=== PATIENT | male | born 1945 | race Caucasian/White ===

== ENCOUNTER 2019-02-16 09:20 | Inpatient (IN) ==
[2019-02-16] MEDS ORDERED: SODIUM CHLORIDE 0.9% 500 ML IV STA (09:40)
[2019-02-16] MEDS ORDERED: ALBUTEROL/IPRATROPIUM 3 ML NEB RESP TX STA (09:40)
[2019-02-16] MEDS ORDERED: LEVOFLOXACIN INJ 500 MG in PREMIX 1 EACH IV STA (09:48)
[2019-02-16 10:04] LABS: Basophils # 0.1 10*3/uL (0.0-0.2); Basophils % 0.4 % (0.0-0.8); Hematocrit 46.1 VOL% (42.0-52.0); Hemoglobin 15.3 GM/DL (14.0-18.0); Immature Granulocytes % 2.8 %; Immature Granulocytes Absolute 0.59 #; Lymphocytes # 0.3 10*3/uL (1.4-4.0); Lymphocytes % 1.2 % (21.2-54.2); Mean Corpuscular HGB Conc 33.2 GM/DL (32-36); Neutrophils % 90.6 % (38.7-73.9); Platelet Count 226 T/CUMM (130-400); Red Blood Count 4.61 MC/CUMM (3.8-5.5); Red Cell Distribution Width 12.6 % (9.3-17.3); White Blood Count 21.4 T/CUMM (4-12)
[2019-02-16] MEDS ORDERED: methylPREDNISolone SOD SUC 125 MG/2 ML VIAL IV STA (10:09)
[2019-02-16 10:13] LABS: INR 1.1; Partial Thromboplastin Time 25.9 SECS (0-40)
[2019-02-16 10:22] LABS: Band Neutrophils 4 % (0-10); Lymphocytes 2 % (20-55); Platelet Estimate Adequate; Segmented Neutrophils 88 % (50-85); Total Cells Counted 100
[2019-02-16 10:23] LABS: Hypochromasia 1+
[2019-02-16 10:41] LABS: Calcium 8.6 MG/DL (8.5-10.1); Osmolality,Calculated 271.1 MOS/KG (273-304); Total Protein 7.3 G/DL (6.4-8.3)
[2019-02-16 10:44] LABS: Apearance,Urine CLEAR (Clear); Blood, Urine Negative (Negative); Glucose,Urine (UA) Negative (Negative); Ketones,Urine 5 mg/dL (Negative); Mucus,Urine Occasional /LPF (Occasional); Nitrite,Urine Negative (Negative); Protein,Urine Negative; RBC,Urine 1 /HPF (0-4); Squamous Epithelial Cell,Urine Occasional /HPF (0-10); Urine Color Amber (Yellow); Urine Specific Gravity 1.053 (1.001-1.035); WBC,Urine 1 /HPF (0-6)
[2019-02-16 10:45] LABS: Bilirubin,Urine Small mg/dL (Negative)
[2019-02-16] MEDS ORDERED: ACETAMINOPHEN 325 MG TABLET PO PRN (11:51)
[2019-02-16] MEDS ORDERED: ONDANSETRON 4 MG/2 ML VIAL IV PRN (11:51)
[2019-02-16] MEDS: ALBUTEROL/IPRATROPIUM 3 ML NEB RESP TX SCH ×2 (13:26→19:57)
[2019-02-16] MEDS ORDERED: IPRATROPIUM 500 MCG/2.5 ML NEB RESP TX PRN (14:30)
[2019-02-16] MEDS: OFLOXACIN 0.3% OPH SOLN 5 ML BOTTLE RIGHT EYE SCH ×3 (16:58→21:17)
[2019-02-16] MEDS: KETOROLAC 0.5% OPH SOLN 5 ML BOTTLE RIGHT EYE SCH ×3 (16:58→21:17)
[2019-02-16] MEDS ORDERED: MELATONIN 3 MG TABLET PO PRN (20:45)
[2019-02-16] MEDS: METOPROLOL TARTRATE 25 MG TABLET PO SCH (21:16)
[2019-02-16] MEDS: FLUTICASONE 50 MCG NASAL SPRAY 16 GM BOTTLE BOTH NARES SCH (21:17)
[2019-02-16] MEDS: methylPREDNISolone SOD SUC 40 MG/1 ML VIAL IV SCH (21:18)
[2019-02-17] MEDS: ALBUTEROL/IPRATROPIUM 3 ML NEB RESP TX SCH ×4 (01:43→20:06)
[2019-02-17 05:00] LABS: Basophils % 0.1 % (0.0-0.8); Hematocrit 43.2 VOL% (42.0-52.0); Hemoglobin 14.7 GM/DL (14.0-18.0); Immature Granulocytes % 2.9 %; Immature Granulocytes Absolute 0.65 #; Lymphocytes # 0.4 10*3/uL (1.4-4.0); Lymphocytes % 1.7 % (21.2-54.2); Mean Corpuscular Volume 98.4 FL (87-102); Monocytes % 4.7 % (1.7-12.7); Neutrophils % 90.6 % (38.7-73.9); Platelet Count 244 T/CUMM (130-400); Red Blood Count 4.39 MC/CUMM (3.8-5.5); Red Cell Distribution Width 12.4 % (9.3-17.3); White Blood Count 22.7 T/CUMM (4-12)
[2019-02-17 05:29] LABS: Band Neutrophils 1 % (0-10); Hypochromasia 1+; Lymphocytes 3 % (20-55); Platelet Estimate Adequate; Segmented Neutrophils 92 % (50-85); Total Cells Counted 100
[2019-02-17 05:40] LABS: Calcium 9.4 MG/DL (8.5-10.1); Osmolality,Calculated 279.8 MOS/KG (273-304); Risk Ratio 2.13; Thyroid Stimulating Hormone 0.428 uIU/ml (0.358-3.74); VLDL CHOLESTEROL 14.6 MG/DL
[2019-02-17] MEDS: LEVOFLOXACIN INJ 750 MG in PREMIX 1 EACH IV SCH (09:18)
[2019-02-17] MEDS: ENOXAPARIN 40 MG/0.4 ML SYRINGE SUBCUT SCH (09:18)
[2019-02-17] MEDS: THEOPHYLLINE ER (24 HR) 200 MG CAPSULE PO SCH (09:19)
[2019-02-17] MEDS: METOPROLOL TARTRATE 25 MG TABLET PO SCH ×2 (09:19→22:17)
[2019-02-17] MEDS: methylPREDNISolone SOD SUC 40 MG/1 ML VIAL IV SCH ×2 (09:19→22:17)
[2019-02-17] MEDS: amLODIPine 10 MG TABLET PO SCH (09:20)
[2019-02-17] MEDS: PARoxetine 20 MG TABLET PO SCH (09:20)
[2019-02-17] MEDS: LOSARTAN 50 MG TABLET PO SCH (09:20)
[2019-02-17] MEDS: MONTELUKAST 10 MG TABLET PO SCH (09:20)
[2019-02-17] MEDS: PANTOPRAZOLE 40 MG TABLET PO SCH (09:20)
[2019-02-17] MEDS: OFLOXACIN 0.3% OPH SOLN 5 ML BOTTLE RIGHT EYE SCH ×4 (09:21→22:18)
[2019-02-17] MEDS: KETOROLAC 0.5% OPH SOLN 5 ML BOTTLE RIGHT EYE SCH ×4 (09:21→22:18)
[2019-02-17] MEDS: FLUTICASONE 50 MCG NASAL SPRAY 16 GM BOTTLE BOTH NARES SCH ×2 (09:40→22:18)
[2019-02-18] MEDS: ALBUTEROL/IPRATROPIUM 3 ML NEB RESP TX SCH ×3 (01:00→13:10)
[2019-02-18 05:11] LABS: Basophils % 0.2 % (0.0-0.8); Hematocrit 42.1 VOL% (42.0-52.0); Hemoglobin 14.3 GM/DL (14.0-18.0); Immature Granulocytes % 2.6 %; Immature Granulocytes Absolute 0.49 #; Lymphocytes # 0.3 10*3/uL (1.4-4.0); Lymphocytes % 1.5 % (21.2-54.2); Mean Corpuscular Volume 98.4 FL (87-102); Mean Platelet Volume 11.9 FL (9.6-12.0); Monocytes % 3.6 % (1.7-12.7); Neutrophils % 92.1 % (38.7-73.9); Platelet Count 280 T/CUMM (130-400); Red Blood Count 4.28 MC/CUMM (3.8-5.5); Red Cell Distribution Width 12.3 % (9.3-17.3); White Blood Count 18.6 T/CUMM (4-12)
[2019-02-18 05:30] LABS: Giant Platelets Few; Hypochromasia 1+; Platelet Estimate Adequate
[2019-02-18 05:44] LABS: Calcium 9.2 MG/DL (8.5-10.1)
[2019-02-18] MEDS: THEOPHYLLINE ER (24 HR) 200 MG CAPSULE PO SCH (09:52)
[2019-02-18] MEDS: LOSARTAN 50 MG TABLET PO SCH (09:52)
[2019-02-18] MEDS: KETOROLAC 0.5% OPH SOLN 5 ML BOTTLE RIGHT EYE SCH ×2 (09:52→13:18)
[2019-02-18] MEDS: OFLOXACIN 0.3% OPH SOLN 5 ML BOTTLE RIGHT EYE SCH ×2 (09:52→13:18)
[2019-02-18] MEDS: FLUTICASONE 50 MCG NASAL SPRAY 16 GM BOTTLE BOTH NARES SCH (09:53)
[2019-02-18] MEDS: PANTOPRAZOLE 40 MG TABLET PO SCH (09:53)
[2019-02-18] MEDS: MONTELUKAST 10 MG TABLET PO SCH (09:53)
[2019-02-18] MEDS: PARoxetine 20 MG TABLET PO SCH (09:53)
[2019-02-18] MEDS: METOPROLOL TARTRATE 25 MG TABLET PO SCH (09:53)
[2019-02-18] MEDS: amLODIPine 10 MG TABLET PO SCH (09:53)
[2019-02-18] MEDS: methylPREDNISolone SOD SUC 40 MG/1 ML VIAL IV SCH (09:57)
[2019-02-18] MEDS: ENOXAPARIN 40 MG/0.4 ML SYRINGE SUBCUT SCH (09:59)
[2019-02-18] MEDS: LEVOFLOXACIN INJ 750 MG in PREMIX 1 EACH IV SCH (10:05)
[2019-02-18 11:20] VITALS: BP 136/71
== END 2019-02-18 15:36 | disposition home or self-care (01) | DRG 194 ==
LOC: EDBD → EDUNIT# → N.ED 09:20 → N.EDINP 10:25 → N.2E 13:56
PROVIDERS: ADMIT Internal Medicine; ATTEND Internal Medicine

== ENCOUNTER 2019-06-01 10:44 | Observation (INO) ==
[2019-06-01] MEDS ORDERED: ALBUTEROL/IPRATROPIUM 3 ML NEB RESP TX STA (11:07)
[2019-06-01] MEDS ORDERED: methylPREDNISolone SOD SUC 125 MG/2 ML VIAL IV STA (11:07)
[2019-06-01 11:37] LABS: Basophils # 0.1 10*3/uL (0.0-0.2); Basophils % 0.4 % (0.0-0.8); Eosinophils # 0.1 10*3/uL (0.0-0.87); Eosinophils % 0.6 % (0.00-10.9); Hematocrit 45.2 VOL% (42.0-52.0); Hemoglobin 14.7 GM/DL (14.0-18.0); Immature Granulocytes % 0.8 %; Immature Granulocytes Absolute 0.11 #; Lymphocytes # 0.8 10*3/uL (1.4-4.0); Lymphocytes % 6.3 % (21.2-54.2); Mean Corpuscular HGB Conc 32.5 GM/DL (32-36); Mean Corpuscular Volume 98.3 FL (87-102); Monocytes % 5.2 % (1.7-12.7); Neutrophils % 86.7 % (38.7-73.9); Platelet Count 285 T/CUMM (130-400); White Blood Count 13.2 T/CUMM (4-12)
[2019-06-01] MEDS ORDERED: cefTRIAXone 1,000 MG in SODIUM CHLORIDE 0.9% 100 ML IV STA (11:54)
[2019-06-01 12:02] LABS: Albumin 3.1 G/DL (3.4-5.0); Bilirubin,Total 0.8 MG/DL (0.2-1.0); Calcium 8.5 MG/DL (8.5-10.1); Osmolality,Calculated 278.5 MOS/KG (273-304); Total Protein 7.4 G/DL (6.4-8.3)
[2019-06-01] MEDS ORDERED: ALBUTEROL 2.5 MG/3 ML NEB RESP TX PRN (13:16)
[2019-06-01 13:44] LABS: ABG Base Excess 2.8 MMOL/L (-2.5-2.5); ABG HCO3 26.8 MMOL/L (20-26); ABG Oxygen Saturation 93.5 % (95-100); ABG PCO2 40.9 MM HG (35-48); ABG PH 7.433 (7.35-7.45); ABG PO2 65.2 MM HG (80-95); ABG TCO2 23.1 MMOL/L (23-27); Allen Test Positive
[2019-06-01] MEDS ORDERED: NON-FORMULARY MEDICATION (Epinephrine [Epipen 2-Pak] 0.3 MG) IM PRN (13:48)
[2019-06-01] MEDS ORDERED: IPRATROPIUM 500 MCG/2.5 ML NEB RESP TX PRN (13:48)
[2019-06-01] MEDS ORDERED: FLUTICASONE/SALMETEROL 500-50 DISKUS 14 DOSE INH PRN (13:48)
[2019-06-01 17:04] LABS: Apearance,Urine CLEAR (Clear); Blood, Urine Negative (Negative); Glucose,Urine (UA) Negative (Negative); Hyaline Casts,Urine 1 /LPF (0-3); Ketones,Urine Negative (Negative); Mucus,Urine Few /LPF (Occasional); Nitrite,Urine Negative (Negative); Protein,Urine 30 MG/DL; RBC,Urine <1 /HPF (0-4); Squamous Epithelial Cell,Urine Occasional /HPF (0-10); Urine Color Amber (Yellow); Urine Specific Gravity 1.031 (1.001-1.035); WBC,Urine 1 /HPF (0-6)
[2019-06-01 17:07] LABS: Bilirubin,Urine Small mg/dL (Negative)
[2019-06-01] MEDS: AZITHROMYCIN INJ 500 MG in SODIUM CHLORIDE 0.9% 250 ML IV SCH (17:39)
[2019-06-01] MEDS: ALBUTEROL/IPRATROPIUM 3 ML NEB RESP TX SCH (19:38)
[2019-06-01] MEDS: guaiFENesin/DM ER 600-30 MG TABLET PO SCH (20:31)
[2019-06-01] MEDS: FLUTICASONE 50 MCG NASAL SPRAY 16 GM BOTTLE BOTH NARES SCH (20:31)
[2019-06-01] MEDS: METOPROLOL TARTRATE 25 MG TABLET PO SCH (20:31)
[2019-06-01] MEDS: NAPROXEN 500 MG TABLET PO SCH (20:31)
[2019-06-01] MEDS: guaiFENesin/CODEINE 5 ML LIQUID PO PRN (23:19)
[2019-06-02] MEDS: ALBUTEROL/IPRATROPIUM 3 ML NEB RESP TX SCH ×4 (00:01→20:06)
[2019-06-02 05:09] LABS: Basophils % 0.3 % (0.0-0.8); Hematocrit 44.3 VOL% (42.0-52.0); Hemoglobin 14.6 GM/DL (14.0-18.0); Immature Granulocytes Absolute 0.16 #; Lymphocytes # 0.5 10*3/uL (1.4-4.0); Lymphocytes % 3.5 % (21.2-54.2); Mean Corpuscular Volume 96.7 FL (87-102); Mean Platelet Volume 11.8 FL (9.6-12.0); Monocytes % 3.3 % (1.7-12.7); NRBC # 0.03 10*3/uL; Neutrophils % 91.9 % (38.7-73.9); Platelet Count 304 T/CUMM (130-400); Red Blood Count 4.58 MC/CUMM (3.8-5.5); Red Cell Distribution Width 12.5 % (9.3-17.3); White Blood Count 15.4 T/CUMM (4-12)
[2019-06-02 05:38] LABS: Albumin 2.8 G/DL (3.4-5.0); Bilirubin,Total 0.7 MG/DL (0.2-1.0); Calcium 8.8 MG/DL (8.5-10.1); Osmolality,Calculated 276.1 MOS/KG (273-304); Total Protein 7.4 G/DL (6.4-8.3)
[2019-06-02 05:47] LABS: Platelet Estimate Normal
[2019-06-02 05:48] LABS: Spherocytes Slight
[2019-06-02 07:03] LABS: Band Neutrophils 1 % (0-10); Lymphocytes 6 % (20-55); Segmented Neutrophils 90 % (50-85); Total Cells Counted 100
[2019-06-02] MEDS: METOPROLOL TARTRATE 25 MG TABLET PO SCH ×2 (09:06→20:36)
[2019-06-02] MEDS: MONTELUKAST 10 MG TABLET PO SCH (09:06)
[2019-06-02] MEDS: LOSARTAN 50 MG TABLET PO SCH (09:06)
[2019-06-02] MEDS: NAPROXEN 500 MG TABLET PO SCH ×2 (09:06→20:36)
[2019-06-02] MEDS: guaiFENesin/DM ER 600-30 MG TABLET PO SCH ×2 (09:06→20:36)
[2019-06-02] MEDS: FLUTICASONE 50 MCG NASAL SPRAY 16 GM BOTTLE BOTH NARES SCH ×2 (09:07→20:37)
[2019-06-02] MEDS: PARoxetine 20 MG TABLET PO SCH (09:07)
[2019-06-02] MEDS: predniSONE 20 MG TABLET PO SCH (09:07)
[2019-06-02] MEDS: THEOPHYLLINE ER (24 HR) 400 MG CAPSULE PO SCH (09:07)
[2019-06-02] MEDS: POLYVINYL ALCOHOL 1.4% OPH SOLN 15 ML BOTTLE BOTH EYES SCH (11:15)
[2019-06-02] MEDS: guaiFENesin/CODEINE 5 ML LIQUID PO PRN ×3 (11:44→20:36)
[2019-06-02] MEDS ORDERED: BENZONATATE 100 MG CAPSULE PO ONE (15:58)
[2019-06-02] MEDS: AZITHROMYCIN INJ 500 MG in SODIUM CHLORIDE 0.9% 250 ML IV SCH (16:47)
[2019-06-02] MEDS: BENZONATATE 100 MG CAPSULE PO SCH (20:36)
[2019-06-03] MEDS: ALBUTEROL/IPRATROPIUM 3 ML NEB RESP TX SCH ×2 (01:23→07:47)
[2019-06-03 07:36] VITALS: BP 140/71
[2019-06-03] MEDS: POLYVINYL ALCOHOL 1.4% OPH SOLN 15 ML BOTTLE BOTH EYES SCH (08:51)
[2019-06-03] MEDS: BENZONATATE 100 MG CAPSULE PO SCH (08:52)
[2019-06-03] MEDS: MONTELUKAST 10 MG TABLET PO SCH (08:53)
[2019-06-03] MEDS: THEOPHYLLINE ER (24 HR) 400 MG CAPSULE PO SCH (08:53)
[2019-06-03] MEDS: LOSARTAN 50 MG TABLET PO SCH (08:53)
[2019-06-03] MEDS: PARoxetine 20 MG TABLET PO SCH (08:54)
[2019-06-03] MEDS: guaiFENesin/DM ER 600-30 MG TABLET PO SCH (08:54)
[2019-06-03] MEDS: predniSONE 20 MG TABLET PO SCH (08:54)
[2019-06-03] MEDS: METOPROLOL TARTRATE 25 MG TABLET PO SCH (08:54)
[2019-06-03] MEDS: NAPROXEN 500 MG TABLET PO SCH (08:54)
[2019-06-03] MEDS: FLUTICASONE 50 MCG NASAL SPRAY 16 GM BOTTLE BOTH NARES SCH (08:54)
[2019-06-03] MEDS ORDERED: AZITHROMYCIN 250 MG TABLET PO SCH (09:00)
== END 2019-06-03 10:28 | disposition home or self-care (01) ==
LOC: N.ED 10:44 → N.EDINP 10:44 → N.2W 15:02
PROVIDERS: ADMIT Internal Medicine; ATTEND Internal Medicine

== ENCOUNTER 2020-03-28 15:47 | Observation (INO) ==
[2020-03-28 17:06] LABS: Basophils # 0.1 10*3/uL (0.0-0.2); Basophils % 0.7 % (0.0-0.8); Eosinophils % 0.1 % (0.00-10.9); Hematocrit 48.6 VOL% (42.0-52.0); Hemoglobin 16.2 GM/DL (14.0-18.0); Immature Granulocytes % 3.3 %; Lymphocytes # 0.7 10*3/uL (1.4-4.0); Lymphocytes % 4.6 % (21.2-54.2); Mean Corpuscular HGB Conc 33.3 GM/DL (32-36); Mean Corpuscular Volume 96.2 FL (87-102); Mean Platelet Volume 11.4 FL (9.6-12.0); Monocytes % 4.6 % (1.7-12.7); Neutrophils % 86.7 % (38.7-73.9); Platelet Count 256 T/CUMM (130-400); Red Blood Count 5.05 MC/CUMM (3.8-5.5); Red Cell Distribution Width 13.4 % (9.3-17.3); White Blood Count 15.4 T/CUMM (4-12)
[2020-03-28 17:21] LABS: Albumin 3.4 G/DL (3.4-5.0); Bilirubin,Total 1.1 MG/DL (0.2-1.0); Calcium 8.7 MG/DL (8.5-10.1); Osmolality,Calculated 286.7 MOS/KG (273-304); Total Protein 6.5 G/DL (6.4-8.3)
[2020-03-28] MEDS ORDERED: cefTRIAXone 1,000 MG in SODIUM CHLORIDE 0.9% 100 ML IV STA (17:39)
[2020-03-28] MEDS ORDERED: AZITHROMYCIN INJ 500 MG in SODIUM CHLORIDE 0.9% 250 ML IV STA (17:39)
[2020-03-28 17:40] LABS: Lymphocytes 5 % (20-55); Platelet Estimate Adequate; Segmented Neutrophils 90 % (50-85); Total Cells Counted 100
[2020-03-28] MEDS ORDERED: ACETAMINOPHEN 325 MG TABLET PO PRN (17:47)
[2020-03-28] MEDS ORDERED: ONDANSETRON 4 MG/2 ML VIAL IV PRN (17:47)
[2020-03-28] MEDS ORDERED: GLUCAGON 1 MG VIAL IM PRN (17:47)
[2020-03-28] MEDS ORDERED: DEXTROSE 50% 25 GM/50 ML VIAL IV PRN (17:47)
[2020-03-28] MEDS ORDERED: BISACODYL 5 MG TABLET PO PRN (17:47)
[2020-03-28] MEDS ORDERED: FUROSEMIDE 40 MG/4 ML VIAL IV ONE (18:19)
[2020-03-28] MEDS ORDERED: ALBUTEROL/IPRATROPIUM 3 ML NEB RESP TX PRN (18:36)
[2020-03-28 19:57] LABS: Troponin I < 0.015 NG/ML (0.00-0.045)
[2020-03-28] MEDS: INSULIN LISPRO 100 UNIT/ML SUBCUT SCH (21:11)
[2020-03-28 21:57] LABS: Troponin I < 0.015 NG/ML (0.00-0.045)
[2020-03-29 06:30] LABS: Basophils # 0.1 10*3/uL (0.0-0.2); Basophils % 0.5 % (0.0-0.8); Eosinophils % 0.1 % (0.00-10.9); Hemoglobin 15.5 GM/DL (14.0-18.0); Immature Granulocytes % 3.8 %; Lymphocytes # 1.7 10*3/uL (1.4-4.0); Mean Corpuscular HGB Conc 33.7 GM/DL (32-36); Mean Corpuscular Volume 96.2 FL (87-102); Mean Platelet Volume 11.5 FL (9.6-12.0); Monocytes % 6.6 % (1.7-12.7); Platelet Count 216 T/CUMM (130-400); Red Blood Count 4.78 MC/CUMM (3.8-5.5); Red Cell Distribution Width 13.2 % (9.3-17.3); White Blood Count 13.2 T/CUMM (4-12)
[2020-03-29 07:01] LABS: Bilirubin,Total 0.4 MG/DL (0.2-1.0); Calcium 8.6 MG/DL (8.5-10.1); Osmolality,Calculated 285.5 MOS/KG (273-304); Risk Ratio 3.37; Thyroid Stimulating Hormone 0.436 uIU/ml (0.358-3.74); Total Protein 6.4 G/DL (6.4-8.3)
[2020-03-29] MEDS ORDERED: FUROSEMIDE 40 MG/4 ML VIAL IV SCH (08:00)
[2020-03-29] MEDS: cefTRIAXone 1,000 MG in SYRINGE 1 EACH IV SCH (08:52)
[2020-03-29] MEDS: AZITHROMYCIN INJ 500 MG in SODIUM CHLORIDE 0.9% 250 ML IV SCH (08:52)
[2020-03-29] MEDS: INSULIN LISPRO 100 UNIT/ML SUBCUT SCH ×4 (08:58→21:40)
[2020-03-29] MEDS ORDERED: POTASSIUM CHLORIDE 20 MEQ TABLET PO PRN (09:17)
[2020-03-29 10:01] LABS: Theophylline 3.5 UG/ML (10-20)
[2020-03-29] MEDS: METOPROLOL TARTRATE 25 MG TABLET PO SCH (10:02)
[2020-03-29] MEDS: methylPREDNISolone 4 MG TABLET PO SCH (10:02)
[2020-03-30 05:45] LABS: Basophils # 0.1 10*3/uL (0.0-0.2); Basophils % 0.7 % (0.0-0.8); Eosinophils % 0.3 % (0.00-10.9); Hematocrit 48.7 VOL% (42.0-52.0); Immature Granulocytes % 3.9 %; Immature Granulocytes Absolute 0.38 #; Lymphocytes # 1.6 10*3/uL (1.4-4.0); Lymphocytes % 16.1 % (21.2-54.2); Mean Corpuscular HGB Conc 32.9 GM/DL (32-36); Mean Corpuscular Volume 98.6 FL (87-102); Mean Platelet Volume 10.9 FL (9.6-12.0); Monocytes % 9.7 % (1.7-12.7); Neutrophils % 69.3 % (38.7-73.9); Platelet Count 206 T/CUMM (130-400); Red Blood Count 4.94 MC/CUMM (3.8-5.5); Red Cell Distribution Width 13.2 % (9.3-17.3); White Blood Count 9.7 T/CUMM (4-12)
[2020-03-30 07:32] LABS: Bilirubin,Total 0.76 MG/DL (0.2-1.0); Calcium 9.1 MG/DL (8.5-10.1); Osmolality,Calculated 281.5 MOS/KG (273-304); Total Protein 6.5 G/DL (6.4-8.3)
[2020-03-30] MEDS: methylPREDNISolone 4 MG TABLET PO SCH (09:37)
[2020-03-30] MEDS: cefTRIAXone 1,000 MG in SYRINGE 1 EACH IV SCH (09:37)
[2020-03-30] MEDS: METOPROLOL TARTRATE 25 MG TABLET PO SCH (09:37)
[2020-03-30] MEDS: AZITHROMYCIN INJ 500 MG in SODIUM CHLORIDE 0.9% 250 ML IV SCH (09:48)
[2020-03-30] MEDS: INSULIN LISPRO 100 UNIT/ML SUBCUT SCH ×2 (10:59→14:58)
[2020-03-30 11:27] VITALS: BP 121/61
== END 2020-03-30 14:38 | disposition home or self-care (01) ==
LOC: N.EDINP 15:47 → N.ED 15:47 → SUATTDRO 17:47 → N.TELEN 18:23
PROVIDERS: ADMIT Internal Medicine; ATTEND Internal Medicine

== ENCOUNTER 2020-05-11 09:17 | Inpatient (IN) ==
[2020-05-11] MEDS ORDERED: cefTRIAXone 1,000 MG in SODIUM CHLORIDE 0.9% 100 ML IV STA (09:54)
[2020-05-11] MEDS ORDERED: SODIUM CHLORIDE 0.9% 1,000 ML IV STA (09:54)
[2020-05-11 10:29] LABS: Basophils % 0.3 % (0.0-0.8); Eosinophils % 0.1 % (0.00-10.9); Hematocrit 41.2 VOL% (42.0-52.0); Immature Granulocytes % 1.6 %; Immature Granulocytes Absolute 0.21 #; Lymphocytes # 0.6 10*3/uL (1.4-4.0); Lymphocytes % 4.2 % (21.2-54.2); Mean Corpuscular Volume 93.8 FL (87-102); Mean Platelet Volume 11.4 FL (9.6-12.0); Monocytes % 6.2 % (1.7-12.7); Neutrophils % 87.6 % (38.7-73.9); Platelet Count 266 T/CUMM (130-400); Red Blood Count 4.39 MC/CUMM (3.8-5.5); Red Cell Distribution Width 13.2 % (9.3-17.3); White Blood Count 13.5 T/CUMM (4-12)
[2020-05-11 10:49] LABS: Alanine Aminotransferase 23 U/L (16-61); Albumin 2.9 G/DL (3.4-5.0); Alkaline Phosphatase 106 U/L (45-117); Aspartate Amino Transferase 14 U/L (0-37); Blood Urea Nitrogen 22 MG/DL (7-18); Calcium 8.5 MG/DL (8.5-10.1); Estimated Glom Filtration Rate 62 ML/MIN; Glucose 169 MG/DL (74-106); INR 1.1; Osmolality,Calculated 276.1 MOS/KG (273-304); PT Patient Result 11.5 SECS (9.8-11.9); Partial Thromboplastin Time 24.6 SECS (23.9-33.8); Total Protein 6.4 G/DL (6.4-8.3); Troponin I < 0.015 NG/ML (0.00-0.045)
[2020-05-11 10:50] LABS: Ferritin 124.1 ng/ml (26-388)
[2020-05-11 11:12] LABS: Band Neutrophils 9 % (0-10); Lymphocytes 3 % (20-55); Platelet Estimate Adequate; Segmented Neutrophils 82 % (50-85); Total Cells Counted 100
[2020-05-11 11:14] LABS: Bacteria,Urine Occasional /HPF (Few); Bilirubin,Urine Negative (Negative); Blood, Urine Negative (Negative); Glucose,Urine (UA) Negative (Negative); Hyaline Casts,Urine 5 /LPF (0-3); Ketones,Urine 5 mg/dL (Negative); Nitrite,Urine Negative (Negative); Protein,Urine 100 MG/DL; RBC,Urine 1 /HPF (0-4); Urine Appearance CLEAR (Clear); Urine Color Amber (Yellow); Urine Specific Gravity 1.025 (1.001-1.035); WBC,Urine <1 /HPF (0-6)
[2020-05-11] MEDS ORDERED: GLUCAGON 1 MG VIAL IM PRN ×2 (12:08→18:53)
[2020-05-11] MEDS ORDERED: ONDANSETRON 4 MG/2 ML VIAL IV PRN (12:08)
[2020-05-11] MEDS ORDERED: DEXTROSE 50% 25 GM/50 ML VIAL IV PRN ×2 (12:08→18:53)
[2020-05-11] MEDS ORDERED: AZITHROMYCIN INJ 500 MG in SODIUM CHLORIDE 0.9% 250 ML IV SCH (15:00)
[2020-05-11] MEDS: POTASSIUM CHLORIDE 20 MEQ TABLET PO PRN ×3 (16:12→20:49)
[2020-05-11] MEDS: ACETAMINOPHEN 325 MG TABLET PO PRN ×2 (16:12→20:29)
[2020-05-11] MEDS: AZITHROMYCIN 250 MG TABLET PO SCH (16:12)
[2020-05-11] MEDS: SODIUM CHLORIDE 0.9% 1,000 ML IV SCH (16:13)
[2020-05-11 19:46] LABS: Bilirubin,Urine Negative (Negative); Blood, Urine Negative (Negative); Glucose,Urine (UA) Negative (Negative); Ketones,Urine Negative (Negative); Mucus,Urine Occasional /LPF (Occasional); Nitrite,Urine Negative (Negative); Protein,Urine Negative; RBC,Urine 2 /HPF (0-4); Urine Appearance CLEAR (Clear); Urine Color Amber (Yellow); Urine Specific Gravity 1.018 (1.001-1.035); WBC,Urine 2 /HPF (0-6)
[2020-05-11] MEDS: FLUTICASONE/SALMETEROL 500-50 DISKUS 14 DOSE INH SCH (20:33)
[2020-05-11] MEDS: INSULIN LISPRO 100 UNIT/ML SUBCUT SCH (20:33)
[2020-05-12 06:10] LABS: Basophils # 0.1 10*3/uL (0.0-0.2); Basophils % 0.4 % (0.0-0.8); Eosinophils # 0.1 10*3/uL (0.0-0.87); Eosinophils % 0.4 % (0.00-10.9); Hematocrit 38.7 VOL% (42.0-52.0); Immature Granulocytes % 0.8 %; Lymphocytes # 1.4 10*3/uL (1.4-4.0); Mean Corpuscular HGB Conc 33.6 GM/DL (32-36); Mean Corpuscular Volume 95.1 FL (87-102); Mean Platelet Volume 11.7 FL (9.6-12.0); Monocytes % 10.3 % (1.7-12.7); Neutrophils % 77.1 % (38.7-73.9); Platelet Count 217 T/CUMM (130-400); Red Blood Count 4.07 MC/CUMM (3.8-5.5); Red Cell Distribution Width 13.4 % (9.3-17.3); White Blood Count 12.3 T/CUMM (4-12)
[2020-05-12 06:13] LABS: Albumin 2.4 G/DL (3.4-5.0); Bilirubin,Total 1.6 MG/DL (0.2-1.0); Calcium 8.7 MG/DL (8.5-10.1); Osmolality,Calculated 278.7 MOS/KG (273-304); Thyroid Stimulating Hormone 0.817 uIU/ml (0.358-3.74)
[2020-05-12] MEDS ORDERED: MAGNESIUM SULF RIDER 4 GM in PREMIX 1 EACH IV PRN (07:46)
[2020-05-12] MEDS ORDERED: MAGNESIUM SULF RIDER 2 GM in PREMIX 1 EACH IV PRN (07:46)
[2020-05-12] MEDS: INSULIN LISPRO 100 UNIT/ML SUBCUT SCH ×4 (07:54→20:36)
[2020-05-12] MEDS: PANTOPRAZOLE 40 MG TABLET PO SCH (08:56)
[2020-05-12] MEDS: ACETAMINOPHEN 325 MG TABLET PO PRN ×2 (08:56→14:55)
[2020-05-12] MEDS: THEOPHYLLINE ER (24 HR) 400 MG CAPSULE PO SCH (08:56)
[2020-05-12] MEDS: FUROSEMIDE 40 MG/4 ML VIAL IV SCH (08:57)
[2020-05-12] MEDS: PARoxetine 20 MG TABLET PO SCH (08:57)
[2020-05-12] MEDS: AZITHROMYCIN 250 MG TABLET PO SCH (08:57)
[2020-05-12] MEDS: POTASSIUM CHLORIDE 20 MEQ TABLET PO PRN ×3 (08:57→12:59)
[2020-05-12] MEDS: METOPROLOL TARTRATE 25 MG TABLET PO SCH (08:57)
[2020-05-12] MEDS: cefTRIAXone 1,000 MG in SYRINGE 1 EACH IV SCH (08:58)
[2020-05-12] MEDS: FLUTICASONE/SALMETEROL 500-50 DISKUS 14 DOSE INH SCH ×2 (08:58→20:35)
[2020-05-12] MEDS: MONTELUKAST 10 MG TABLET PO SCH (09:03)
[2020-05-12 09:38] LABS: Polychromasia Slight
[2020-05-12 09:39] LABS: Platelet Estimate Normal
[2020-05-12] MEDS: OLOPATADINE 0.1% OPH SOLN 5 ML BOTTLE BOTH EYES SCH (11:08)
[2020-05-12] MEDS: SODIUM CHLORIDE 0.9% 1,000 ML IV SCH (16:42)
[2020-05-13 05:05] LABS: Basophils # 0.1 10*3/uL (0.0-0.2); Basophils % 0.6 % (0.0-0.8); Eosinophils # 0.1 10*3/uL (0.0-0.87); Eosinophils % 0.7 % (0.00-10.9); Hematocrit 38.6 VOL% (42.0-52.0); Hemoglobin 12.7 GM/DL (14.0-18.0); Immature Granulocytes % 1.3 %; Immature Granulocytes Absolute 0.12 #; Lymphocytes # 0.8 10*3/uL (1.4-4.0); Lymphocytes % 9.2 % (21.2-54.2); Mean Corpuscular HGB Conc 32.9 GM/DL (32-36); Mean Corpuscular Volume 95.1 FL (87-102); Mean Platelet Volume 11.1 FL (9.6-12.0); Monocytes % 12.8 % (1.7-12.7); Neutrophils % 75.4 % (38.7-73.9); Platelet Count 216 T/CUMM (130-400); Red Blood Count 4.06 MC/CUMM (3.8-5.5); Red Cell Distribution Width 13.3 % (9.3-17.3)
[2020-05-13 05:31] LABS: Albumin 2.4 G/DL (3.4-5.0); Bilirubin,Total 0.8 MG/DL (0.2-1.0); Calcium 8.7 MG/DL (8.5-10.1); Total Protein 6.1 G/DL (6.4-8.3)
[2020-05-13] MEDS: MONTELUKAST 10 MG TABLET PO SCH (08:25)
[2020-05-13] MEDS: AZITHROMYCIN 250 MG TABLET PO SCH (08:25)
[2020-05-13] MEDS: PARoxetine 20 MG TABLET PO SCH (08:25)
[2020-05-13] MEDS: PANTOPRAZOLE 40 MG TABLET PO SCH (08:25)
[2020-05-13] MEDS: THEOPHYLLINE ER (24 HR) 400 MG CAPSULE PO SCH (08:25)
[2020-05-13] MEDS: METOPROLOL TARTRATE 25 MG TABLET PO SCH (08:25)
[2020-05-13] MEDS: FLUTICASONE/SALMETEROL 500-50 DISKUS 14 DOSE INH SCH ×2 (08:26→20:48)
[2020-05-13] MEDS: FUROSEMIDE 40 MG/4 ML VIAL IV SCH (08:28)
[2020-05-13] MEDS: cefTRIAXone 1,000 MG in SYRINGE 1 EACH IV SCH (08:31)
[2020-05-13] MEDS: OLOPATADINE 0.1% OPH SOLN 5 ML BOTTLE BOTH EYES SCH (08:34)
[2020-05-13] MEDS: INSULIN LISPRO 100 UNIT/ML SUBCUT SCH ×4 (08:34→20:50)
[2020-05-13] MEDS: SODIUM CHLORIDE 0.9% 1,000 ML IV SCH (10:44)
[2020-05-14] MEDS: SODIUM CHLORIDE 0.9% 1,000 ML IV SCH (05:29)
[2020-05-14 06:02] LABS: Basophils # 0.1 10*3/uL (0.0-0.2); Basophils % 0.6 % (0.0-0.8); Eosinophils # 0.1 10*3/uL (0.0-0.87); Eosinophils % 0.9 % (0.00-10.9); Hematocrit 39.3 VOL% (42.0-52.0); Hemoglobin 13.1 GM/DL (14.0-18.0); Immature Granulocytes % 2.1 %; Lymphocytes # 1.1 10*3/uL (1.4-4.0); Lymphocytes % 11.5 % (21.2-54.2); Mean Corpuscular HGB Conc 33.3 GM/DL (32-36); Mean Corpuscular Volume 96.6 FL (87-102); Mean Platelet Volume 11.5 FL (9.6-12.0); Monocytes % 12.5 % (1.7-12.7); Neutrophils % 72.4 % (38.7-73.9); Platelet Count 248 T/CUMM (130-400); Red Blood Count 4.07 MC/CUMM (3.8-5.5); Red Cell Distribution Width 13.2 % (9.3-17.3); White Blood Count 9.7 T/CUMM (4-12)
[2020-05-14 06:27] LABS: Albumin 2.5 G/DL (3.4-5.0); Bilirubin,Total 1.6 MG/DL (0.2-1.0); Calcium 8.9 MG/DL (8.5-10.1); Total Protein 6.6 G/DL (6.4-8.3)
[2020-05-14] MEDS: INSULIN LISPRO 100 UNIT/ML SUBCUT SCH ×4 (08:45→21:14)
[2020-05-14] MEDS: PANTOPRAZOLE 40 MG TABLET PO SCH (10:18)
[2020-05-14] MEDS: THEOPHYLLINE ER (24 HR) 400 MG CAPSULE PO SCH (10:18)
[2020-05-14] MEDS: AZITHROMYCIN 250 MG TABLET PO SCH (10:18)
[2020-05-14] MEDS: PARoxetine 20 MG TABLET PO SCH (10:18)
[2020-05-14] MEDS: FLUTICASONE/SALMETEROL 500-50 DISKUS 14 DOSE INH SCH ×2 (10:19→21:14)
[2020-05-14] MEDS: MONTELUKAST 10 MG TABLET PO SCH (10:19)
[2020-05-14] MEDS: METOPROLOL TARTRATE 25 MG TABLET PO SCH (10:19)
[2020-05-14] MEDS: cefTRIAXone 1,000 MG in SYRINGE 1 EACH IV SCH (10:20)
[2020-05-14] MEDS: FUROSEMIDE 40 MG/4 ML VIAL IV SCH (10:20)
[2020-05-14] MEDS: OLOPATADINE 0.1% OPH SOLN 5 ML BOTTLE BOTH EYES SCH (10:22)
[2020-05-14] MEDS ORDERED: MAGNESIUM SULF IV ONE (11:00)
[2020-05-14] MEDS ORDERED: POTASSIUM CHLORIDE IV ONE (11:00)
[2020-05-14] MEDS ORDERED: SODIUM CHLORIDE 0.9% IV ONE (11:00)
[2020-05-14] MEDS ORDERED: MAGNESIUM SULF RIDER 2 GM in PREMIX 1 EACH IV ONE (12:00)
[2020-05-14] MEDS ORDERED: POTASSIUM CHLORIDE 20 MEQ/15 ML UDCUP PO ONE (14:00)
[2020-05-14] MEDS ORDERED: HYDROCORTISONE 1% CREAM 28 GM TUBE TOP PRN (15:13)
[2020-05-14] MEDS ORDERED: ALBUTEROL/IPRATROPIUM 3 ML NEB RESP TX PRN (15:44)
[2020-05-14] MEDS ORDERED: TOBRAMYCIN INJ 80 MG in SODIUM CHLORIDE 0.9% 100 ML IV SCH (16:00)
[2020-05-14] MEDS ORDERED: FUROSEMIDE 20 MG TABLET PO SCH (16:00)
[2020-05-14] MEDS ORDERED: FLUCONAZOLE INJ 100 MG in IV BAG 1 EACH IV SCH (16:00)
[2020-05-14] MEDS: methylPREDNISolone SOD SUC 40 MG/1 ML VIAL IV SCH (16:44)
[2020-05-14] MEDS: MECLIZINE 25 MG TABLET PO SCH (21:14)
[2020-05-15] MEDS: methylPREDNISolone SOD SUC 40 MG/1 ML VIAL IV SCH ×3 (05:24→17:52)
[2020-05-15 05:38] LABS: Basophils # 0.1 10*3/uL (0.0-0.2); Basophils % 0.6 % (0.0-0.8); Hematocrit 37.1 VOL% (42.0-52.0); Hemoglobin 12.6 GM/DL (14.0-18.0); Immature Granulocytes % 4.3 %; Immature Granulocytes Absolute 0.33 #; Lymphocytes # 0.5 10*3/uL (1.4-4.0); Lymphocytes % 6.3 % (21.2-54.2); Mean Corpuscular Volume 94.6 FL (87-102); Mean Platelet Volume 11.2 FL (9.6-12.0); Monocytes % 3.9 % (1.7-12.7); Neutrophils % 84.9 % (38.7-73.9); Platelet Count 243 T/CUMM (130-400); Red Blood Count 3.92 MC/CUMM (3.8-5.5); Red Cell Distribution Width 13.1 % (9.3-17.3); White Blood Count 7.7 T/CUMM (4-12)
[2020-05-15 06:08] LABS: Calcium 8.9 MG/DL (8.5-10.1); Osmolality,Calculated 271.4 MOS/KG (273-304)
[2020-05-15] MEDS ORDERED: GLIMEPIRIDE 4 MG TABLET PO SCH (09:00)
[2020-05-15] MEDS: MECLIZINE 25 MG TABLET PO SCH ×3 (09:03→21:12)
[2020-05-15] MEDS: PARoxetine 20 MG TABLET PO SCH (09:03)
[2020-05-15] MEDS: METOPROLOL TARTRATE 25 MG TABLET PO SCH (09:03)
[2020-05-15] MEDS: THEOPHYLLINE ER (24 HR) 400 MG CAPSULE PO SCH (09:03)
[2020-05-15] MEDS: GLIMEPIRIDE 2 MG TABLET PO SCH (09:03)
[2020-05-15] MEDS: PANTOPRAZOLE 40 MG TABLET PO SCH (09:04)
[2020-05-15] MEDS: MONTELUKAST 10 MG TABLET PO SCH (09:05)
[2020-05-15] MEDS: ENOXAPARIN 40 MG/0.4 ML SYRINGE SUBCUT SCH (09:05)
[2020-05-15] MEDS: FLUTICASONE/SALMETEROL 500-50 DISKUS 14 DOSE INH SCH ×2 (09:06→21:13)
[2020-05-15] MEDS: OLOPATADINE 0.1% OPH SOLN 5 ML BOTTLE BOTH EYES SCH (09:06)
[2020-05-15] MEDS: INSULIN LISPRO 100 UNIT/ML SUBCUT SCH ×4 (09:18→21:12)
[2020-05-15] MEDS: ALBUTEROL/IPRATROPIUM 3 ML NEB RESP TX SCH ×2 (13:12→20:08)
[2020-05-15] MEDS: DORNASE ALFA 2.5 MG/2.5 ML VIAL RESP TX SCH ×2 (13:18→20:08)
[2020-05-16] MEDS: methylPREDNISolone SOD SUC 40 MG/1 ML VIAL IV SCH ×3 (00:30→20:41)
[2020-05-16] MEDS: ALBUTEROL/IPRATROPIUM 3 ML NEB RESP TX SCH ×4 (01:06→19:16)
[2020-05-16 05:11] LABS: Basophils # 0.1 10*3/uL (0.0-0.2); Basophils % 0.7 % (0.0-0.8); Hematocrit 36.3 VOL% (42.0-52.0); Immature Granulocytes % 4.3 %; Immature Granulocytes Absolute 0.47 #; Lymphocytes # 0.5 10*3/uL (1.4-4.0); Lymphocytes % 4.4 % (21.2-54.2); Mean Corpuscular HGB Conc 33.1 GM/DL (32-36); Mean Corpuscular Volume 94.3 FL (87-102); Mean Platelet Volume 11.4 FL (9.6-12.0); Monocytes % 3.7 % (1.7-12.7); Neutrophils % 86.9 % (38.7-73.9); Platelet Count 282 T/CUMM (130-400); Red Blood Count 3.85 MC/CUMM (3.8-5.5); Red Cell Distribution Width 13.1 % (9.3-17.3); White Blood Count 10.9 T/CUMM (4-12)
[2020-05-16 05:35] LABS: Band Neutrophils 1 % (0-10); Hypochromasia 1+; Lymphocytes 5 % (20-55); Microcytosis 1+; Platelet Estimate Adequate; Segmented Neutrophils 91 % (50-85); Total Cells Counted 100
[2020-05-16] MEDS: DORNASE ALFA 2.5 MG/2.5 ML VIAL RESP TX SCH ×2 (07:15→19:16)
[2020-05-16] MEDS: MECLIZINE 25 MG TABLET PO SCH ×3 (08:36→20:41)
[2020-05-16] MEDS: MONTELUKAST 10 MG TABLET PO SCH (08:36)
[2020-05-16] MEDS: THEOPHYLLINE ER (24 HR) 400 MG CAPSULE PO SCH (08:36)
[2020-05-16] MEDS: ENOXAPARIN 40 MG/0.4 ML SYRINGE SUBCUT SCH (08:37)
[2020-05-16] MEDS: PARoxetine 20 MG TABLET PO SCH (08:37)
[2020-05-16] MEDS: METOPROLOL TARTRATE 25 MG TABLET PO SCH (08:37)
[2020-05-16] MEDS: INSULIN LISPRO 100 UNIT/ML SUBCUT SCH ×4 (08:37→20:41)
[2020-05-16] MEDS: GLIMEPIRIDE 2 MG TABLET PO SCH (08:37)
[2020-05-16] MEDS: FLUTICASONE/SALMETEROL 500-50 DISKUS 14 DOSE INH SCH ×2 (08:37→20:42)
[2020-05-16] MEDS: OLOPATADINE 0.1% OPH SOLN 5 ML BOTTLE BOTH EYES SCH (08:37)
[2020-05-16] MEDS: PANTOPRAZOLE 40 MG TABLET PO SCH (08:37)
[2020-05-16] MEDS: BENZONATATE 100 MG CAPSULE PO SCH ×2 (11:58→20:41)
[2020-05-16] MEDS ORDERED: FUROSEMIDE 20 MG/2 ML VIAL IV ONE (13:00)
[2020-05-17] MEDS: ALBUTEROL/IPRATROPIUM 3 ML NEB RESP TX SCH ×2 (00:05→08:12)
[2020-05-17 04:23] LABS: Calcium 8.8 MG/DL (8.5-10.1)
[2020-05-17] MEDS: DORNASE ALFA 2.5 MG/2.5 ML VIAL RESP TX SCH (08:12)
[2020-05-17] MEDS: ENOXAPARIN 40 MG/0.4 ML SYRINGE SUBCUT SCH (08:18)
[2020-05-17] MEDS: INSULIN LISPRO 100 UNIT/ML SUBCUT SCH ×2 (08:18→12:30)
[2020-05-17] MEDS: methylPREDNISolone SOD SUC 40 MG/1 ML VIAL IV SCH (08:18)
[2020-05-17] MEDS: OLOPATADINE 0.1% OPH SOLN 5 ML BOTTLE BOTH EYES SCH (08:19)
[2020-05-17] MEDS: BENZONATATE 100 MG CAPSULE PO SCH (08:19)
[2020-05-17] MEDS: METOPROLOL TARTRATE 25 MG TABLET PO SCH (08:19)
[2020-05-17] MEDS: PARoxetine 20 MG TABLET PO SCH (08:19)
[2020-05-17] MEDS: MONTELUKAST 10 MG TABLET PO SCH (08:19)
[2020-05-17] MEDS: GLIMEPIRIDE 2 MG TABLET PO SCH (08:19)
[2020-05-17] MEDS: FLUTICASONE/SALMETEROL 500-50 DISKUS 14 DOSE INH SCH (08:19)
[2020-05-17] MEDS: MECLIZINE 25 MG TABLET PO SCH (08:20)
[2020-05-17] MEDS: THEOPHYLLINE ER (24 HR) 400 MG CAPSULE PO SCH (08:20)
[2020-05-17] MEDS: PANTOPRAZOLE 40 MG TABLET PO SCH (08:20)
[2020-05-17] MEDS ORDERED: FUROSEMIDE 20 MG TABLET PO SCH (09:00)
[2020-05-17] MEDS ORDERED: predniSONE 20 MG TABLET PO SCH (11:00)
[2020-05-17 12:04] VITALS: BP 145/81
== END 2020-05-17 13:06 | disposition swing bed (61) | DRG 871 ==
LOC: N.ED 09:17 → SUATTDRO 12:07 → N.EDINP 12:07 → N.5E 15:14
PROVIDERS: ADMIT Internal Medicine; ATTEND Internal Medicine

== ENCOUNTER 2020-08-08 06:44 | Inpatient (IN) ==
[2020-08-08] MEDS ORDERED: ONDANSETRON 4 MG/2 ML VIAL IV STA (06:58)
[2020-08-08] MEDS ORDERED: SODIUM CHLORIDE 0.9% 500 ML IV STA (06:58)
[2020-08-08] MEDS ORDERED: PANTOPRAZOLE INJ 80 MG in SODIUM CHLORIDE 0.9% 100 ML IV STA (06:58)
[2020-08-08] MEDS ORDERED: PANTOPRAZOLE 40 MG VIAL IV ONE ×2 (07:16→07:21)
[2020-08-08 07:21] LABS: Basophils % 0.3 % (0.0-0.8); Hematocrit 34.9 VOL% (42.0-52.0); Hemoglobin 10.6 GM/DL (14.0-18.0); Immature Granulocytes % 2.1 %; Immature Granulocytes Absolute 0.31 #; Lymphocytes % 19.9 % (21.2-54.2); Mean Corpuscular HGB Conc 30.4 GM/DL (32-36); Mean Corpuscular Volume 94.1 FL (87-102); Mean Platelet Volume 11.4 FL (9.6-12.0); Monocytes % 10.6 % (1.7-12.7); Neutrophils % 67.1 % (38.7-73.9); Platelet Count 454 T/CUMM (130-400); Red Blood Count 3.71 MC/CUMM (3.8-5.5); Red Cell Distribution Width 12.9 % (9.3-17.3); White Blood Count 14.9 T/CUMM (4-12)
[2020-08-08 07:35] LABS: INR 1.1; PT Patient Result 11.9 SECS (9.8-11.9); Partial Thromboplastin Time 23.4 SECS (23.9-33.8)
[2020-08-08 07:49] LABS: Albumin 2.6 G/DL (3.4-5.0); Bilirubin,Total 0.4 MG/DL (0.2-1.0); Calcium 8.2 MG/DL (8.5-10.1); Osmolality,Calculated 290.8 MOS/KG (273-304); Potassium 4.1 MMOL/L (3.5-5.1); Total Protein 6.1 G/DL (6.4-8.3)
[2020-08-08] MEDS ORDERED: cefTRIAXone 1,000 MG in SODIUM CHLORIDE 0.9% 100 ML IV STA (07:56)
[2020-08-08] MEDS ORDERED: cefTRIAXone 1,000 MG VIAL ONE (08:50)
[2020-08-08] MEDS ORDERED: LACTATED RINGERS 1,000 ML IV ONE (08:57)
[2020-08-08] MEDS ORDERED: SODIUM CHLORIDE 0.9% 1,000 ML IV PRN (08:58)
[2020-08-08] MEDS ORDERED: SODIUM CHLORIDE 0.9% 1,000 ML IV STA (09:02)
[2020-08-08] MEDS: PANTOPRAZOLE INJ 200 MG in SODIUM CHLORIDE 0.9% 250 ML IV SCH (11:50)
[2020-08-08] MEDS ORDERED: ONDANSETRON 4 MG/2 ML VIAL ONE (15:35)
[2020-08-08] MEDS: ONDANSETRON 4 MG/2 ML VIAL IV PRN ×2 (15:39→21:35)
[2020-08-08] MEDS ORDERED: PROMETHAZINE 25 MG/1 ML VIAL IM PRN (16:09)
[2020-08-08] MEDS ORDERED: ACETAMINOPHEN 325 MG TABLET PO PRN (17:25)
[2020-08-08] MEDS: FUROSEMIDE 20 MG/2 ML VIAL IV PRN ×2 (18:00→21:40)
[2020-08-08 18:34] LABS: Bilirubin,Urine Negative (Negative); Blood, Urine Negative (Negative); Glucose,Urine (UA) Negative (Negative); Hyaline Casts,Urine 14 /LPF (0-3); Ketones,Urine Negative (Negative); Mucus,Urine Occasional /LPF (Occasional); Nitrite,Urine Negative (Negative); Protein,Urine Negative; RBC,Urine 1 /HPF (0-4); Squamous Epithelial Cell,Urine Occasional /HPF (0-10); Urine Appearance CLEAR (Clear); Urine Color Yellow (Yellow); Urine Specific Gravity 1.016 (1.001-1.035); Urine Urobilinogen < 2.0 EU/DL (0.2-1.0); WBC,Urine 1 /HPF (0-6)
[2020-08-08 21:47] LABS: Basophils % 0.1 % (0.0-0.8); Hematocrit 33.6 VOL% (42.0-52.0); Hemoglobin 10.6 GM/DL (14.0-18.0); Immature Granulocytes % 1.2 %; Lymphocytes # 0.8 10*3/uL (1.4-4.0); Lymphocytes % 5.1 % (21.2-54.2); Mean Corpuscular HGB Conc 31.5 GM/DL (32-36); Mean Corpuscular Volume 91.6 FL (87-102); Monocytes % 4.6 % (1.7-12.7); Platelet Count 340 T/CUMM (130-400); Red Blood Count 3.67 MC/CUMM (3.8-5.5); Red Cell Distribution Width 13.5 % (9.3-17.3); White Blood Count 16.4 T/CUMM (4-12)
[2020-08-08 22:02] LABS: Calcium 7.8 MG/DL (8.5-10.1); Potassium 3.8 MMOL/L (3.5-5.1)
[2020-08-08] MEDS ORDERED: MAGNESIUM SULF RIDER 4 GM in PREMIX 1 EACH IV PRN (22:05)
[2020-08-08] MEDS ORDERED: MAGNESIUM SULF RIDER 2 GM in PREMIX 1 EACH IV PRN (22:05)
[2020-08-08] MEDS ORDERED: METOPROLOL TARTRATE 5 MG/5 ML VIAL IV ONE (23:25)
[2020-08-08] MEDS ORDERED: SODIUM CHLORIDE 0.9% 500 ML IV ONE (23:26)
[2020-08-09 01:05] LABS: ABG Base Excess 2.8 MMOL/L (-2.5-2.5); ABG HCO3 26.8 MMOL/L (20-26); ABG Oxygen Saturation 95.6 % (95-100); ABG PH 7.389 (7.35-7.45); ABG PO2 80.3 MM HG (80-95); ABG TCO2 25.5 MMOL/L (23-27)
[2020-08-09 03:34] LABS: Basophils % 0.1 % (0.0-0.8); Hematocrit 32.3 VOL% (42.0-52.0); Hemoglobin 10.1 GM/DL (14.0-18.0); Immature Granulocytes Absolute 0.24 #; Lymphocytes # 0.9 10*3/uL (1.4-4.0); Lymphocytes % 3.5 % (21.2-54.2); Mean Corpuscular HGB Conc 31.3 GM/DL (32-36); Mean Corpuscular Volume 92.6 FL (87-102); Mean Platelet Volume 11.5 FL (9.6-12.0); Monocytes % 7.6 % (1.7-12.7); Neutrophils % 87.8 % (38.7-73.9); Platelet Count 298 T/CUMM (130-400); Red Blood Count 3.49 MC/CUMM (3.8-5.5); Red Cell Distribution Width 13.9 % (9.3-17.3); White Blood Count 24.6 T/CUMM (4-12)
[2020-08-09 04:05] LABS: Alanine Aminotransferase 17 U/L (16-61); Albumin 2.5 G/DL (3.4-5.0); Alkaline Phosphatase 61 U/L (45-117); Aspartate Amino Transferase 19 U/L (0-37); Blood Urea Nitrogen 66 MG/DL (7-18); Calcium 7.6 MG/DL (8.5-10.1); Carbon Dioxide 27 MMOL/L (21-32); Estimated Glom Filtration Rate 51 ML/MIN; Glucose 97 MG/DL (74-106); Osmolality,Calculated 304.8 MOS/KG (273-304); Potassium 3.4 MMOL/L (3.5-5.1); Sodium 144 MMOL/L (136-145); Total Protein 5.4 G/DL (6.4-8.3); Troponin I < 0.015 NG/ML (0.00-0.045)
[2020-08-09 04:22] LABS: Band Neutrophils 9 % (0-10); Lymphocytes 4 % (20-55); Segmented Neutrophils 81 % (50-85); Total Cells Counted 100
[2020-08-09 04:23] LABS: Hypochromasia 1+; Microcytosis 1+; Platelet Estimate Adequate
[2020-08-09] MEDS: PIPERACILLIN/TAZOBACTAM 3,375 MG in SODIUM CHLORIDE 0.9% 100 ML IV SCH ×3 (05:50→21:19)
[2020-08-09] MEDS: LACTATED RINGERS 1,000 ML IV SCH (07:29)
[2020-08-09] MEDS ORDERED: SEVOFLURANE 1 UNIT/15 MINUTE INH ONE (08:03)
[2020-08-09] MEDS ORDERED: LIDOCAINE 2% 5 ML VIAL ONE (08:03)
[2020-08-09] MEDS ORDERED: PHENYLEPHRINE 1 MG/10 ML SYRINGE IV ONE (08:03)
[2020-08-09] MEDS ORDERED: SUCCINYLCHOLINE 200 MG/10 ML VIAL ONE (08:03)
[2020-08-09] MEDS ORDERED: ETOMIDATE 20 MG/10 ML VIAL IV ONE (08:03)
[2020-08-09] MEDS ORDERED: propofoL 200 MG/20 ML VIAL IV ONE (08:03)
[2020-08-09] MEDS ORDERED: ALBUTEROL/IPRATROPIUM 3 ML NEB RESP TX ONE ×2 (09:00→09:07)
[2020-08-09] MEDS: PANTOPRAZOLE INJ 200 MG in SODIUM CHLORIDE 0.9% 250 ML IV SCH (10:14)
[2020-08-09] MEDS ORDERED: DEXTROSE 50% 25 GM/50 ML VIAL IV PRN (12:36)
[2020-08-09] MEDS ORDERED: GLUCAGON 1 MG VIAL IM PRN (12:36)
[2020-08-09] MEDS: ONDANSETRON 4 MG/2 ML VIAL IV PRN ×2 (13:35→19:20)
[2020-08-09] MEDS ORDERED: NICOTINE 14 MG/24 HR PATCH TRANSDERM PRN (14:48)
[2020-08-09] MEDS ORDERED: ALBUTEROL/IPRATROPIUM 3 ML NEB RESP TX PRN (17:29)
[2020-08-09] MEDS: PANTOPRAZOLE 40 MG VIAL IV SCH (21:17)
[2020-08-10 03:57] LABS: Basophils % 0.1 % (0.0-0.8); Hematocrit 31.7 VOL% (42.0-52.0); Hemoglobin 9.6 GM/DL (14.0-18.0); Immature Granulocytes % 0.7 %; Lymphocytes # 0.9 10*3/uL (1.4-4.0); Lymphocytes % 6.3 % (21.2-54.2); Mean Corpuscular HGB Conc 30.3 GM/DL (32-36); Mean Corpuscular Volume 94.9 FL (87-102); Mean Platelet Volume 11.4 FL (9.6-12.0); Monocytes % 5.3 % (1.7-12.7); Neutrophils % 87.6 % (38.7-73.9); Platelet Count 227 T/CUMM (130-400); Red Blood Count 3.34 MC/CUMM (3.8-5.5); Red Cell Distribution Width 14.1 % (9.3-17.3)
[2020-08-10 04:18] LABS: Osmolality,Calculated 294.3 MOS/KG (273-304); Potassium 4.3 MMOL/L (3.5-5.1)
[2020-08-10 04:38] LABS: Band Neutrophils 12 % (0-10); Hypochromasia Slight; Lymphocytes 11 % (20-55); Platelet Estimate Normal; Segmented Neutrophils 73 % (50-85); Total Cells Counted 100
[2020-08-10 04:39] LABS: Allen Test Positive; Pt O2 Delivery Device Venturi Mask
[2020-08-10 04:44] LABS: ABG Base Excess 3.3 MMOL/L (-2.5-2.5); ABG HCO3 26.9 MMOL/L (20-26); ABG Oxygen Saturation 73.3 % (95-100); ABG PCO2 52.9 MM HG (35-48); ABG PH 7.358 (7.35-7.45); ABG PO2 42.7 MM HG (80-95); ABG TCO2 27.3 MMOL/L (23-27)
[2020-08-10 05:11] LABS: ABG Base Excess 2.4 MMOL/L (-2.5-2.5); ABG HCO3 27.6 MMOL/L (20-26); ABG Oxygen Saturation 94.1 % (95-100); ABG PCO2 45.7 MM HG (35-48); ABG PH 7.399 (7.35-7.45); ABG PO2 71.6 MM HG (80-95)
[2020-08-10] MEDS: PIPERACILLIN/TAZOBACTAM 3,375 MG in SODIUM CHLORIDE 0.9% 100 ML IV SCH (06:30)
[2020-08-10] MEDS ORDERED: cefTRIAXone 1,000 MG in SYRINGE 1 EACH IV SCH (08:30)
[2020-08-10] MEDS: LACTATED RINGERS 1,000 ML IV SCH (08:39)
[2020-08-10] MEDS: PANTOPRAZOLE 40 MG VIAL IV SCH (09:08)
[2020-08-10] MEDS: methylPREDNISolone SOD SUC 40 MG/1 ML VIAL IV SCH ×2 (09:10→20:07)
[2020-08-10] MEDS ORDERED: AMINOPHYLLINE 250 MG in SODIUM CHLORIDE 0.9% 100 ML IV ONE (10:15)
[2020-08-10] MEDS: BUDESONIDE 0.5 MG/2 ML NEB RESP TX SCH ×2 (11:07→20:04)
[2020-08-10] MEDS: DORNASE ALFA 2.5 MG/2.5 ML VIAL RESP TX SCH ×2 (11:13→20:04)
[2020-08-10] MEDS ORDERED: ALENDRONATE 35 MG PO SCH (11:26)
[2020-08-10] MEDS ORDERED: FUROSEMIDE 40 MG TABLET PO PRN (11:26)
[2020-08-10] MEDS: MEROPENEM 500 MG in SODIUM CHLORIDE 0.9% 100 ML IV SCH ×3 (12:26→22:51)
[2020-08-10] MEDS: PARoxetine 20 MG TABLET PO SCH (12:27)
[2020-08-10] MEDS: METOPROLOL TARTRATE 25 MG TABLET PO SCH (12:27)
[2020-08-10] MEDS ORDERED: AMINOPHYLLINE 500 MG in SODIUM CHLORIDE 0.9% 480 ML IV SCH (15:00)
[2020-08-10] MEDS: PANTOPRAZOLE 40 MG TABLET PO SCH (20:06)
[2020-08-10] MEDS: ONDANSETRON 4 MG/2 ML VIAL IV PRN (20:07)
[2020-08-10] MEDS: MONTELUKAST 10 MG TABLET PO SCH (20:07)
[2020-08-10 20:39] LABS: Hematocrit 27.4 VOL% (42.0-52.0); Hemoglobin 8.7 GM/DL (14.0-18.0)
[2020-08-11] MEDS: MEROPENEM 500 MG in SODIUM CHLORIDE 0.9% 100 ML IV SCH ×2 (03:37→12:28)
[2020-08-11 06:28] LABS: Basophils % 0.2 % (0.0-0.8); Hematocrit 27.9 VOL% (42.0-52.0); Immature Granulocytes % 1.3 %; Immature Granulocytes Absolute 0.17 #; Lymphocytes # 0.4 10*3/uL (1.4-4.0); Lymphocytes % 3.3 % (21.2-54.2); Mean Corpuscular HGB Conc 32.3 GM/DL (32-36); Mean Platelet Volume 12.4 FL (9.6-12.0); Monocytes % 3.4 % (1.7-12.7); Neutrophils % 91.8 % (38.7-73.9); Platelet Count 185 T/CUMM (130-400); Red Cell Distribution Width 13.6 % (9.3-17.3); White Blood Count 12.8 T/CUMM (4-12)
[2020-08-11 06:50] LABS: Band Neutrophils 3 % (0-10); Lymphocytes 1 % (20-55); Platelet Estimate Adequate; Segmented Neutrophils 95 % (50-85); Total Cells Counted 100
[2020-08-11 06:51] LABS: Calcium 8.5 MG/DL (8.5-10.1); Hypochromasia 1+; Microcytosis 1+; Osmolality,Calculated 280.7 MOS/KG (273-304); Potassium 4.2 MMOL/L (3.5-5.1)
[2020-08-11] MEDS: BUDESONIDE 0.5 MG/2 ML NEB RESP TX SCH (07:28)
[2020-08-11] MEDS: DORNASE ALFA 2.5 MG/2.5 ML VIAL RESP TX SCH (07:33)
[2020-08-11] MEDS ORDERED: OLOPATADINE 0.7% BOTH EYES SCH (09:00)
[2020-08-11] MEDS: methylPREDNISolone SOD SUC 40 MG/1 ML VIAL IV SCH (09:42)
[2020-08-11] MEDS: PANTOPRAZOLE 40 MG TABLET PO SCH (09:43)
[2020-08-11] MEDS: MONTELUKAST 10 MG TABLET PO SCH (09:43)
[2020-08-11] MEDS: METOPROLOL TARTRATE 25 MG TABLET PO SCH (09:43)
[2020-08-11] MEDS: PARoxetine 20 MG TABLET PO SCH (09:43)
[2020-08-11] MEDS ORDERED: AUTO INJECTOR SUBCUT PRN (11:11)
[2020-08-11] MEDS ORDERED: EPINEPHRINE 0.3 MG/0.3 ML SUBCUT PRN (11:11)
[2020-08-11] MEDS ORDERED: PANTOPRAZOLE 40 MG TABLET PO PRN (11:11)
[2020-08-11] MEDS ORDERED: FLUTICASONE/SALMETEROL 500-50 DISKUS 14 DOSE INH PRN (11:11)
[2020-08-11] MEDS ORDERED: MECLIZINE 25 MG TABLET PO PRN (11:11)
[2020-08-11] MEDS ORDERED: ALBUTEROL 2.5 MG/3 ML NEB RESP TX PRN (11:11)
[2020-08-11 12:20] VITALS: BP 141/69
[2020-08-12] MEDS ORDERED: methylPREDNISolone 4 MG TABLET PO SCH (09:00)
[2020-08-12] MEDS ORDERED: FLUOROURACIL 5% TOP SCH (09:00)
[2020-08-12] MEDS ORDERED: GLIMEPIRIDE 4 MG TABLET PO SCH (09:00)
[2020-08-12] MEDS ORDERED: THEOPHYLLINE ER (24 HR) 400 MG TABLET PO SCH (09:00)
== END 2020-08-11 13:55 | disposition home health service (06) | DRG 378 ==
LOC: N.ED 06:44 → N.EDINP 08:52 → SUATTDRO 08:52 → N.ICU 15:25 → N.TELEN 08-10 15:20 → N.5E 08-10 17:02
PROVIDERS: ADMIT Internal Medicine; ATTEND Internal Medicine Geriatric Medicine

== ENCOUNTER 2021-01-20 04:52 | Inpatient (IN) ==
[2021-01-20 05:40] LABS: ABG Base Excess 1.7 MMOL/L (-2.5-2.5); ABG HCO3 25.6 MMOL/L (20-26); ABG Oxygen Saturation 85.3 % (95-100); ABG PCO2 44.2 MM HG (35-48); ABG PH 7.395 (7.35-7.45); ABG PO2 53.8 MM HG (80-95); ABG TCO2 23.2 MMOL/L (23-27); Basophils % 0.2 % (0.0-0.8); Hematocrit 46.1 VOL% (42.0-52.0); Hemoglobin 14.3 GM/DL (14.0-18.0); Immature Granulocytes % 1.3 %; Immature Granulocytes Absolute 0.17 #; Lymphocytes # 1.2 10*3/uL (1.4-4.0); Mean Platelet Volume 10.9 FL (9.6-12.0); Monocytes % 4.9 % (1.7-12.7); Neutrophils % 84.6 % (38.7-73.9); Platelet Count 294 T/CUMM (130-400); Red Blood Count 5.12 MC/CUMM (3.8-5.5); Red Cell Distribution Width 15.2 % (9.3-17.3); White Blood Count 13.2 T/CUMM (4-12)
[2021-01-20] MEDS ORDERED: ALBUTEROL/IPRATROPIUM 3 ML NEB RESP TX STA (05:52)
[2021-01-20 05:58] LABS: Albumin 3.5 G/DL (3.4-5.0); Bilirubin,Total 0.5 MG/DL (0.20-1.00); Calcium 8.7 MG/DL (8.5-10.1); Potassium 3.9 MMOL/L (3.5-5.1); Total Protein 6.8 G/DL (6.4-8.2)
[2021-01-20 06:56] LABS: Bilirubin,Urine Negative (Negative); Blood, Urine Negative (Negative); Glucose,Urine (UA) Negative (Negative); Hyaline Casts,Urine 1 /LPF (0-3); Ketones,Urine Negative (Negative); Mucus,Urine Occasional /LPF (Occasional); Nitrite,Urine Negative (Negative); Protein,Urine Negative; RBC,Urine 1 /HPF (0-4); Urine Appearance CLEAR (Clear); Urine Color Yellow (Yellow); Urine Specific Gravity 1.015 (1.001-1.035); Urine Urobilinogen < 2.0 EU/DL (0.2-1.0)
[2021-01-20] MEDS ORDERED: cefTRIAXone 1,000 MG in SODIUM CHLORIDE 0.9% 100 ML IV STA (06:57)
[2021-01-20] MEDS ORDERED: methylPREDNISolone SOD SUC 40 MG/1 ML VIAL IV STA (06:57)
[2021-01-20] MEDS ORDERED: PROMETHAZINE 25 MG TABLET PO PRN (07:52)
[2021-01-20] MEDS ORDERED: ACETAMINOPHEN 325 MG TABLET PO PRN (07:52)
[2021-01-20] MEDS ORDERED: MORPHINE 2 MG/1 ML SYRINGE IV PRN (07:52)
[2021-01-20] MEDS ORDERED: DOCUSATE SODIUM 100 MG CAPSULE PO PRN (07:52)
[2021-01-20] MEDS ORDERED: ONDANSETRON 4 MG/2 ML VIAL IV PRN (07:52)
[2021-01-20] MEDS ORDERED: ZALEPLON 5 MG CAPSULE PO PRN (07:52)
[2021-01-20] MEDS ORDERED: diphenhydrAMINE CAP 25 MG CAPSULE PO PRN (07:52)
[2021-01-20] MEDS ORDERED: GLUCAGON 1 MG VIAL IM PRN (08:20)
[2021-01-20] MEDS ORDERED: DEXTROSE 50% 25 GM/50 ML VIAL IV PRN (08:20)
[2021-01-20] MEDS ORDERED: FUROSEMIDE 20 MG TABLET PO PRN (08:30)
[2021-01-20] MEDS ORDERED: PIPERACILLIN/TAZOBACTAM 3,375 MG in SODIUM CHLORIDE 0.9% 100 ML IV SCH (08:30)
[2021-01-20] MEDS: MEROPENEM 500 MG in SODIUM CHLORIDE 0.9% 100 ML IV SCH ×3 (08:45→20:39)
[2021-01-20] MEDS: THEOPHYLLINE ER (24 HR) 400 MG TABLET PO SCH (10:59)
[2021-01-20] MEDS: guaiFENesin/DM ER 600-30 MG TABLET PO SCH ×2 (10:59→20:39)
[2021-01-20] MEDS: GLIMEPIRIDE 4 MG TABLET PO SCH (10:59)
[2021-01-20] MEDS: PARoxetine 20 MG TABLET PO SCH (11:00)
[2021-01-20] MEDS: CHOLECALCIFEROL 1,000 UNIT TABLET PO SCH (11:00)
[2021-01-20] MEDS: MONTELUKAST 10 MG TABLET PO SCH ×2 (11:00→20:39)
[2021-01-20] MEDS: PANTOPRAZOLE 40 MG TABLET PO SCH (11:01)
[2021-01-20] MEDS: METOPROLOL TARTRATE 25 MG TABLET PO SCH (11:01)
[2021-01-20] MEDS: MULTIVITAMIN (CENTRUM) TABLET PO SCH (11:03)
[2021-01-20] MEDS: FLUTICASONE/SALMETEROL 500-50 DISKUS 14 DOSE INH SCH ×3 (11:03→20:43)
[2021-01-20] MEDS ORDERED: ALBUTEROL/IPRATROPIUM 3 ML NEB RESP TX ONE (11:56)
[2021-01-20] MEDS: ALBUTEROL/IPRATROPIUM 3 ML NEB RESP TX SCH ×2 (12:00→20:05)
[2021-01-20] MEDS: INSULIN LISPRO 100 UNIT/ML SUBCUT SCH ×3 (12:38→20:40)
[2021-01-20] MEDS: methylPREDNISolone SOD SUC 40 MG/1 ML VIAL IV SCH ×2 (16:00→23:42)
[2021-01-20] MEDS: RIVAROXABAN 10 MG TABLET PO SCH (17:09)
[2021-01-21] MEDS: BENZONATATE 100 MG CAPSULE PO PRN (00:09)
[2021-01-21] MEDS: ALBUTEROL/IPRATROPIUM 3 ML NEB RESP TX SCH ×4 (00:27→19:08)
[2021-01-21] MEDS: MEROPENEM 500 MG in SODIUM CHLORIDE 0.9% 100 ML IV SCH ×4 (03:22→20:17)
[2021-01-21 05:59] LABS: Basophils % 0.1 % (0.0-0.8); Hematocrit 42.7 VOL% (42.0-52.0); Hemoglobin 13.3 GM/DL (14.0-18.0); Immature Granulocytes % 1.1 %; Immature Granulocytes Absolute 0.19 #; Lymphocytes # 0.5 10*3/uL (1.4-4.0); Lymphocytes % 3.1 % (21.2-54.2); Mean Corpuscular HGB Conc 31.1 GM/DL (32-36); Mean Corpuscular Volume 90.3 FL (87-102); Mean Platelet Volume 11.4 FL (9.6-12.0); Monocytes % 4.9 % (1.7-12.7); Neutrophils % 90.8 % (38.7-73.9); Platelet Count 272 T/CUMM (130-400); Red Blood Count 4.73 MC/CUMM (3.8-5.5); Red Cell Distribution Width 15.6 % (9.3-17.3); White Blood Count 16.9 T/CUMM (4-12)
[2021-01-21 06:16] LABS: Band Neutrophils 8 % (0-10); Lymphocytes 4 % (20-55); Segmented Neutrophils 83 % (50-85); Total Cells Counted 100
[2021-01-21 06:17] LABS: Hypochromasia 1+; Microcytosis 1+; Platelet Estimate Adequate
[2021-01-21 06:33] LABS: Albumin 2.8 G/DL (3.4-5.0); Bilirubin,Total 0.6 MG/DL (0.20-1.00); Calcium 8.8 MG/DL (8.5-10.1); Potassium 4.1 MMOL/L (3.5-5.1); Total Protein 7.2 G/DL (6.4-8.2)
[2021-01-21] MEDS: INSULIN LISPRO 100 UNIT/ML SUBCUT SCH ×4 (08:26→20:22)
[2021-01-21] MEDS: METOPROLOL TARTRATE 25 MG TABLET PO SCH (08:27)
[2021-01-21] MEDS: MULTIVITAMIN (CENTRUM) TABLET PO SCH (08:27)
[2021-01-21] MEDS: methylPREDNISolone SOD SUC 40 MG/1 ML VIAL IV SCH ×2 (08:27→16:52)
[2021-01-21] MEDS: THEOPHYLLINE ER (24 HR) 400 MG TABLET PO SCH (08:27)
[2021-01-21] MEDS: PARoxetine 20 MG TABLET PO SCH (08:27)
[2021-01-21] MEDS: guaiFENesin/DM ER 600-30 MG TABLET PO SCH ×2 (08:28→20:21)
[2021-01-21] MEDS: CHOLECALCIFEROL 1,000 UNIT TABLET PO SCH (08:28)
[2021-01-21] MEDS: GLIMEPIRIDE 4 MG TABLET PO SCH (08:28)
[2021-01-21] MEDS: MONTELUKAST 10 MG TABLET PO SCH ×2 (08:28→20:22)
[2021-01-21] MEDS: PANTOPRAZOLE 40 MG TABLET PO SCH (08:28)
[2021-01-21] MEDS: FLUTICASONE/SALMETEROL 500-50 DISKUS 14 DOSE INH SCH ×2 (09:35→20:25)
[2021-01-21] MEDS: RIVAROXABAN 10 MG TABLET PO SCH (16:41)
[2021-01-22] MEDS: methylPREDNISolone SOD SUC 40 MG/1 ML VIAL IV SCH ×4 (00:08→23:26)
[2021-01-22] MEDS: ALBUTEROL/IPRATROPIUM 3 ML NEB RESP TX SCH ×4 (00:35→19:35)
[2021-01-22] MEDS: MEROPENEM 500 MG in SODIUM CHLORIDE 0.9% 100 ML IV SCH ×4 (02:03→21:23)
[2021-01-22 05:44] LABS: Basophils % 0.1 % (0.0-0.8); Hematocrit 38.6 VOL% (42.0-52.0); Hemoglobin 12.1 GM/DL (14.0-18.0); Immature Granulocytes % 1.2 %; Immature Granulocytes Absolute 0.18 #; Lymphocytes # 0.4 10*3/uL (1.4-4.0); Lymphocytes % 2.7 % (21.2-54.2); Mean Corpuscular HGB Conc 31.3 GM/DL (32-36); Mean Corpuscular Volume 91.3 FL (87-102); Mean Platelet Volume 11.4 FL (9.6-12.0); Monocytes % 3.3 % (1.7-12.7); Neutrophils % 92.7 % (38.7-73.9); Platelet Count 262 T/CUMM (130-400); Red Blood Count 4.23 MC/CUMM (3.8-5.5); Red Cell Distribution Width 15.5 % (9.3-17.3); White Blood Count 15.4 T/CUMM (4-12)
[2021-01-22 06:03] LABS: Calcium 8.8 MG/DL (8.5-10.1); Osmolality,Calculated 283.1 MOS/KG (273-304); Potassium 4.1 MMOL/L (3.5-5.1)
[2021-01-22 06:12] LABS: Hypochromasia 1+; Lymphocytes 2 % (20-55); Microcytosis 1+; Platelet Estimate Adequate; Segmented Neutrophils 95 % (50-85); Total Cells Counted 100
[2021-01-22] MEDS: THEOPHYLLINE ER (24 HR) 400 MG TABLET PO SCH (09:02)
[2021-01-22] MEDS: guaiFENesin/DM ER 600-30 MG TABLET PO SCH ×2 (09:03→21:21)
[2021-01-22] MEDS: MONTELUKAST 10 MG TABLET PO SCH ×2 (09:03→21:21)
[2021-01-22] MEDS: GLIMEPIRIDE 4 MG TABLET PO SCH (09:03)
[2021-01-22] MEDS: PARoxetine 20 MG TABLET PO SCH (09:03)
[2021-01-22] MEDS: INSULIN LISPRO 100 UNIT/ML SUBCUT SCH ×4 (09:04→21:23)
[2021-01-22] MEDS: METOPROLOL TARTRATE 25 MG TABLET PO SCH (09:05)
[2021-01-22] MEDS: FLUTICASONE/SALMETEROL 500-50 DISKUS 14 DOSE INH SCH ×2 (09:05→21:21)
[2021-01-22] MEDS: RIVAROXABAN 10 MG TABLET PO SCH (17:31)
[2021-01-22] MEDS: BENZONATATE 100 MG CAPSULE PO PRN (21:28)
[2021-01-23] MEDS: ALBUTEROL/IPRATROPIUM 3 ML NEB RESP TX SCH ×4 (00:40→19:36)
[2021-01-23] MEDS: MEROPENEM 500 MG in SODIUM CHLORIDE 0.9% 100 ML IV SCH ×4 (03:05→20:10)
[2021-01-23] MEDS: BENZONATATE 100 MG CAPSULE PO PRN (06:04)
[2021-01-23 06:22] LABS: Basophils % 0.1 % (0.0-0.8); Hematocrit 39.3 VOL% (42.0-52.0); Hemoglobin 12.4 GM/DL (14.0-18.0); Immature Granulocytes % 1.4 %; Immature Granulocytes Absolute 0.17 #; Lymphocytes # 0.2 10*3/uL (1.4-4.0); Lymphocytes % 1.6 % (21.2-54.2); Mean Corpuscular HGB Conc 31.6 GM/DL (32-36); Mean Corpuscular Volume 89.9 FL (87-102); Mean Platelet Volume 11.5 FL (9.6-12.0); Monocytes % 1.9 % (1.7-12.7); Platelet Count 275 T/CUMM (130-400); Red Blood Count 4.37 MC/CUMM (3.8-5.5); Red Cell Distribution Width 15.3 % (9.3-17.3); White Blood Count 12.3 T/CUMM (4-12)
[2021-01-23 06:40] LABS: Calcium 8.4 MG/DL (8.5-10.1); Osmolality,Calculated 286.8 MOS/KG (273-304)
[2021-01-23 06:43] LABS: Band Neutrophils 4 % (0-10); Hypochromasia 1+; Lymphocytes 2 % (20-55); Segmented Neutrophils 91 % (50-85); Total Cells Counted 100
[2021-01-23 06:44] LABS: Microcytosis 1+; Platelet Estimate Normal
[2021-01-23] MEDS: INSULIN LISPRO 100 UNIT/ML SUBCUT SCH ×4 (09:50→20:14)
[2021-01-23] MEDS: guaiFENesin/DM ER 600-30 MG TABLET PO SCH ×2 (09:51→20:10)
[2021-01-23] MEDS: MONTELUKAST 10 MG TABLET PO SCH ×2 (09:51→20:10)
[2021-01-23] MEDS: GLIMEPIRIDE 4 MG TABLET PO SCH (09:51)
[2021-01-23] MEDS: THEOPHYLLINE ER (24 HR) 400 MG TABLET PO SCH (09:51)
[2021-01-23] MEDS: PARoxetine 20 MG TABLET PO SCH (09:51)
[2021-01-23] MEDS: METOPROLOL TARTRATE 25 MG TABLET PO SCH (09:52)
[2021-01-23] MEDS: FLUTICASONE/SALMETEROL 500-50 DISKUS 14 DOSE INH SCH (09:52)
[2021-01-23] MEDS: methylPREDNISolone SOD SUC 40 MG/1 ML VIAL IV SCH ×3 (09:53→20:12)
[2021-01-23] MEDS: ALUMINUM/MAGNES/SIMETH MAX STR 30 ML UDCUP PO PRN ×2 (13:38→20:10)
[2021-01-23] MEDS: hydrALAZINE 20 MG/1 ML VIAL IV PRN (20:11)
[2021-01-24] MEDS: ALBUTEROL/IPRATROPIUM 3 ML NEB RESP TX SCH ×4 (00:05→20:38)
[2021-01-24] MEDS: MEROPENEM 500 MG in SODIUM CHLORIDE 0.9% 100 ML IV SCH ×4 (01:46→20:38)
[2021-01-24 05:47] LABS: Basophils # 0.1 10*3/uL (0.0-0.2); Basophils % 0.6 % (0.0-0.8); Hematocrit 39.6 VOL% (42.0-52.0); Immature Granulocytes % 3.6 %; Immature Granulocytes Absolute 0.41 #; Lymphocytes # 0.4 10*3/uL (1.4-4.0); Lymphocytes % 3.3 % (21.2-54.2); Mean Corpuscular HGB Conc 32.8 GM/DL (32-36); Mean Corpuscular Volume 87.6 FL (87-102); Mean Platelet Volume 11.3 FL (9.6-12.0); Monocytes % 4.1 % (1.7-12.7); Neutrophils % 88.4 % (38.7-73.9); Platelet Count 287 T/CUMM (130-400); Red Blood Count 4.52 MC/CUMM (3.8-5.5); Red Cell Distribution Width 15.2 % (9.3-17.3); White Blood Count 11.3 T/CUMM (4-12)
[2021-01-24 05:56] LABS: PT Patient Result 10.9 SECS (10.5-12.0); Partial Thromboplastin Time 24.2 SECS (23.9-33.8)
[2021-01-24 06:24] LABS: Band Neutrophils 1 % (0-10); Lymphocytes 6 % (20-55); Segmented Neutrophils 89 % (50-85); Total Cells Counted 100
[2021-01-24 06:25] LABS: Hypochromasia 1+; Microcytosis 1+; Platelet Estimate Normal
[2021-01-24] MEDS ORDERED: MEPERIDINE 50 MG/1 ML VIAL IM ONE (07:30)
[2021-01-24] MEDS ORDERED: BENZONATATE 100 MG CAPSULE PO ONE (07:30)
[2021-01-24] MEDS ORDERED: diphenhydrAMINE 50 MG/1 ML VIAL IM ONE (07:30)
[2021-01-24] MEDS: INSULIN LISPRO 100 UNIT/ML SUBCUT SCH ×4 (07:52→20:34)
[2021-01-24] MEDS ORDERED: LIDOCAINE 2% VISCOUS 100 ML BOTTLE SWISH/SPIT ONE (08:00)
[2021-01-24] MEDS ORDERED: LIDOCAINE 1% 20 ML VIAL MISC INJ ONE (08:00)
[2021-01-24] MEDS ORDERED: LIDOCAINE 2% 20 ML VIAL RESP TX ONE (08:00)
[2021-01-24] MEDS ORDERED: MIDAZOLAM 2 MG/2 ML VIAL ONE (08:13)
[2021-01-24] MEDS ORDERED: GLUCAGON 1 MG VIAL IM PRN (10:19)
[2021-01-24] MEDS ORDERED: DEXTROSE 50% 25 GM/50 ML VIAL IV PRN (10:19)
[2021-01-24] MEDS: PARoxetine 20 MG TABLET PO SCH (10:34)
[2021-01-24] MEDS: THEOPHYLLINE ER (24 HR) 400 MG TABLET PO SCH (10:34)
[2021-01-24] MEDS: GLIMEPIRIDE 4 MG TABLET PO SCH (10:34)
[2021-01-24] MEDS: METOPROLOL TARTRATE 25 MG TABLET PO SCH (10:34)
[2021-01-24] MEDS: methylPREDNISolone SOD SUC 40 MG/1 ML VIAL IV SCH ×2 (10:35→20:36)
[2021-01-24] MEDS: guaiFENesin/DM ER 600-30 MG TABLET PO SCH ×2 (10:52→20:36)
[2021-01-24] MEDS: MONTELUKAST 10 MG TABLET PO SCH ×2 (10:52→20:36)
[2021-01-24] MEDS: ALUMINUM/MAGNES/SIMETH MAX STR 30 ML UDCUP PO PRN (14:00)
[2021-01-24] MEDS: hydrALAZINE 20 MG/1 ML VIAL IV PRN (20:34)
[2021-01-25] MEDS: ALBUTEROL/IPRATROPIUM 3 ML NEB RESP TX SCH ×2 (00:28→07:44)
[2021-01-25] MEDS: MEROPENEM 500 MG in SODIUM CHLORIDE 0.9% 100 ML IV SCH ×2 (02:02→09:08)
[2021-01-25] MEDS: hydrALAZINE 20 MG/1 ML VIAL IV PRN (04:00)
[2021-01-25 05:44] LABS: Basophils # 0.1 10*3/uL (0.0-0.2); Basophils % 0.7 % (0.0-0.8); Eosinophils # 0.1 10*3/uL (0.0-0.87); Eosinophils % 0.5 % (0.00-10.9); Hematocrit 42.3 VOL% (42.0-52.0); Hemoglobin 13.6 GM/DL (14.0-18.0); Immature Granulocytes % 3.7 %; Immature Granulocytes Absolute 0.41 #; Lymphocytes # 0.3 10*3/uL (1.4-4.0); Lymphocytes % 3.1 % (21.2-54.2); Mean Corpuscular HGB Conc 32.2 GM/DL (32-36); Mean Corpuscular Volume 89.1 FL (87-102); Mean Platelet Volume 11.5 FL (9.6-12.0); Monocytes % 3.6 % (1.7-12.7); Neutrophils % 88.4 % (38.7-73.9); Platelet Count 243 T/CUMM (130-400); Red Blood Count 4.75 MC/CUMM (3.8-5.5); Red Cell Distribution Width 15.1 % (9.3-17.3); White Blood Count 11.1 T/CUMM (4-12)
[2021-01-25 06:01] LABS: Calcium 8.2 MG/DL (8.5-10.1); Osmolality,Calculated 283.2 MOS/KG (273-304)
[2021-01-25 06:19] LABS: Band Neutrophils 5 % (0-10); Lymphocytes 6 % (20-55); Platelet Estimate Normal; Segmented Neutrophils 86 % (50-85); Total Cells Counted 100
[2021-01-25] MEDS: INSULIN LISPRO 100 UNIT/ML SUBCUT SCH ×2 (09:07→11:29)
[2021-01-25] MEDS: THEOPHYLLINE ER (24 HR) 400 MG TABLET PO SCH (09:10)
[2021-01-25] MEDS: GLIMEPIRIDE 4 MG TABLET PO SCH (09:10)
[2021-01-25] MEDS: PARoxetine 20 MG TABLET PO SCH (09:10)
[2021-01-25] MEDS: MONTELUKAST 10 MG TABLET PO SCH (09:10)
[2021-01-25] MEDS: METOPROLOL TARTRATE 25 MG TABLET PO SCH (09:14)
[2021-01-25] MEDS: guaiFENesin/DM ER 600-30 MG TABLET PO SCH (09:14)
[2021-01-25] MEDS: methylPREDNISolone SOD SUC 40 MG/1 ML VIAL IV SCH (09:23)
[2021-01-25 11:25] VITALS: BP 168/88
[2021-01-25] MEDS: ALUMINUM/MAGNES/SIMETH MAX STR 30 ML UDCUP PO PRN (11:45)
== END 2021-01-25 12:30 | disposition home health service (06) | DRG 177 ==
LOC: EDUNIT# → EDBD → N.ED 04:52 → SUATTDRO 07:49 → N.EDINP 07:49 → N.5E 13:19
PROVIDERS: ADMIT Internal Medicine; ATTEND Internal Medicine

== ENCOUNTER 2021-03-28 10:44 | Inpatient (IN) ==
[2021-03-28 12:00] LABS: Basophils % 0.1 % (0.0-0.8); Hemoglobin 13.6 GM/DL (14.0-18.0); Immature Granulocytes % 12.1 %; Immature Granulocytes Absolute 1.65 #; Lymphocytes # 1.2 10*3/uL (1.4-4.0); Lymphocytes % 8.5 % (21.2-54.2); Mean Corpuscular HGB Conc 31.6 GM/DL (32-36); Mean Corpuscular Volume 92.7 FL (87-102); Mean Platelet Volume 10.8 FL (9.6-12.0); Monocytes % 4.6 % (1.7-12.7); Neutrophils % 74.7 % (38.7-73.9); Platelet Count 258 T/CUMM (130-400); Red Blood Count 4.64 MC/CUMM (3.8-5.5); Red Cell Distribution Width 15.2 % (9.3-17.3); White Blood Count 13.6 T/CUMM (4-12)
[2021-03-28 12:23] LABS: Albumin 2.8 G/DL (3.4-5.0); Bilirubin,Total 0.4 MG/DL (0.20-1.00); Calcium 8.8 MG/DL (8.5-10.1); Osmolality,Calculated 280.4 MOS/KG (273-304); Potassium 4.8 MMOL/L (3.5-5.1); Total Protein 6.6 G/DL (6.4-8.2)
[2021-03-28 12:24] LABS: Lymphocytes 15 % (20-55); Microcytosis Slight; Polychromasia Slight; Segmented Neutrophils 81 % (50-85); Spherocytes Slight; Total Cells Counted 100
[2021-03-28 13:07] LABS: Bilirubin,Urine Negative (Negative); Blood, Urine Negative (Negative); Glucose,Urine (UA) >=500 mg/dL (Negative); Hyaline Casts,Urine 17 /LPF (0-3); Ketones,Urine Negative (Negative); Mucus,Urine Occasional /LPF (Occasional); Nitrite,Urine Negative (Negative); Protein,Urine Negative; RBC,Urine 1 /HPF (0-4); Urine Appearance CLEAR (Clear); Urine Color Yellow (Yellow); Urine Specific Gravity 1.023 (1.001-1.035); Urine Urobilinogen < 2.0 EU/DL (0.2-1.0)
[2021-03-28 13:15] LABS: Barbiturates Screen,Urine Negative (Negative); Benzodiazepines Screen,Urine Positive (Negative); Cannabinoid Screen,Urine Negative (Negative); Opiate Screen,Urine Positive (Negative); Phencyclidine Screen,Urine Negative (Negative)
[2021-03-28] MEDS ORDERED: NICOTINE 21 MG/24 HR PATCH TRANSDERM PRN (14:10)
[2021-03-28] MEDS ORDERED: ONDANSETRON 4 MG/2 ML VIAL IV PRN (14:10)
[2021-03-28] MEDS ORDERED: BISACODYL 5 MG TABLET PO PRN (14:10)
[2021-03-28] MEDS ORDERED: GLUCAGON 1 MG VIAL IM PRN (14:10)
[2021-03-28] MEDS ORDERED: guaiFENesin/DM ER 600-30 MG TABLET PO PRN (14:10)
[2021-03-28] MEDS ORDERED: DEXTROSE 50% 25 GM/50 ML VIAL IV PRN ×2 (14:10)
[2021-03-28 15:12] LABS: ABG Base Excess 4.6 MMOL/L (-2.5-2.5); ABG HCO3 29.9 MMOL/L (20-26); ABG Oxygen Saturation 94.9 % (95-100); ABG PCO2 46.9 MM HG (35-48); ABG PH 7.422 (7.35-7.45); ABG PO2 74.5 MM HG (80-95); ABG TCO2 31.3 MMOL/L (23-27)
[2021-03-28] MEDS: ENOXAPARIN 40 MG/0.4 ML SYRINGE SUBCUT SCH (15:46)
[2021-03-28] MEDS: SODIUM CHLORIDE 0.9% 1,000 ML IV SCH (15:47)
[2021-03-28] MEDS: methylPREDNISolone SOD SUC 40 MG/1 ML VIAL IV SCH ×2 (15:47→23:05)
[2021-03-28] MEDS: AZITHROMYCIN INJ 500 MG in SODIUM CHLORIDE 0.9% 250 ML IV SCH (15:48)
[2021-03-28] MEDS: INSULIN LISPRO 100 UNIT/ML SUBCUT SCH ×2 (17:37→20:46)
[2021-03-28] MEDS: ALBUTEROL/IPRATROPIUM 3 ML NEB RESP TX SCH (19:30)
[2021-03-28] MEDS: cefTRIAXone 1,000 MG in SODIUM CHLORIDE 0.9% 100 ML IV SCH (21:46)
[2021-03-29] MEDS: INSULIN LISPRO 100 UNIT/ML SUBCUT SCH ×5 (01:19→20:56)
[2021-03-29] MEDS: ALBUTEROL/IPRATROPIUM 3 ML NEB RESP TX SCH ×4 (02:34→20:33)
[2021-03-29 05:17] LABS: Basophils % 0.1 % (0.0-0.8); Hematocrit 40.7 VOL% (42.0-52.0); Hemoglobin 13.1 GM/DL (14.0-18.0); Immature Granulocytes % 7.6 %; Immature Granulocytes Absolute 0.95 #; Lymphocytes # 0.9 10*3/uL (1.4-4.0); Lymphocytes % 7.4 % (21.2-54.2); Mean Corpuscular HGB Conc 32.2 GM/DL (32-36); Mean Corpuscular Volume 92.3 FL (87-102); Neutrophils % 82.9 % (38.7-73.9); Platelet Count 252 T/CUMM (130-400); Red Blood Count 4.41 MC/CUMM (3.8-5.5); Red Cell Distribution Width 14.6 % (9.3-17.3); White Blood Count 12.5 T/CUMM (4-12)
[2021-03-29 05:33] LABS: Calcium 8.2 MG/DL (8.5-10.1); Potassium 3.8 MMOL/L (3.5-5.1); Risk Ratio 2.37; VLDL Cholesterol 14.8 MG/DL
[2021-03-29 05:40] LABS: Free T4 (Free Thyroxine) 0.74 NG/DL (0.76-1.46); Thyroid Stimulating Hormone 0.384 uIU/ml (0.358-3.74)
[2021-03-29 06:01] LABS: Atypical Lymphocytes Few; Band Neutrophils 4 % (0-10); Lymphocytes 9 % (20-55); Segmented Neutrophils 85 % (50-85); Total Cells Counted 100
[2021-03-29 06:02] LABS: Hypochromasia Slight; Microcytosis 1+
[2021-03-29] MEDS: methylPREDNISolone SOD SUC 40 MG/1 ML VIAL IV SCH ×2 (06:03→20:56)
[2021-03-29] MEDS: SODIUM CHLORIDE 0.9% 1,000 ML IV SCH ×2 (06:04→14:41)
[2021-03-29] MEDS ORDERED: MECLIZINE 25 MG TABLET PO PRN (07:30)
[2021-03-29] MEDS ORDERED: BENZONATATE 100 MG CAPSULE PO PRN (07:30)
[2021-03-29] MEDS ORDERED: CLORAZEPATE 3.75 MG TABLET PO PRN (07:30)
[2021-03-29] MEDS: PANTOPRAZOLE 40 MG TABLET PO SCH ×2 (09:26→20:56)
[2021-03-29] MEDS: THEOPHYLLINE ER (24 HR) 200 MG CAPSULE PO SCH (09:26)
[2021-03-29] MEDS: METOPROLOL TARTRATE 25 MG TABLET PO SCH (09:26)
[2021-03-29] MEDS: CHOLECALCIFEROL 5,000 UNIT TABLET PO SCH ×2 (09:26→10:03)
[2021-03-29] MEDS: FERROUS SULFATE 325 MG TABLET PO SCH (09:26)
[2021-03-29] MEDS: PARoxetine 20 MG TABLET PO SCH (09:26)
[2021-03-29] MEDS: MONTELUKAST 10 MG TABLET PO SCH ×2 (09:27→20:56)
[2021-03-29] MEDS: INSULIN NPH 100 UNIT/ML SUBCUT SCH (11:32)
[2021-03-29] MEDS: AZITHROMYCIN INJ 500 MG in SODIUM CHLORIDE 0.9% 250 ML IV SCH (14:25)
[2021-03-29] MEDS: ENOXAPARIN 40 MG/0.4 ML SYRINGE SUBCUT SCH (14:26)
[2021-03-29] MEDS: cefTRIAXone 1,000 MG in SODIUM CHLORIDE 0.9% 100 ML IV SCH (20:57)
[2021-03-30] MEDS: ALBUTEROL/IPRATROPIUM 3 ML NEB RESP TX SCH ×4 (02:16→19:36)
[2021-03-30] MEDS: PANTOPRAZOLE 40 MG TABLET PO SCH ×2 (09:05→20:49)
[2021-03-30] MEDS: CHOLECALCIFEROL 5,000 UNIT TABLET PO SCH (09:05)
[2021-03-30] MEDS: FERROUS SULFATE 325 MG TABLET PO SCH (09:05)
[2021-03-30] MEDS: THEOPHYLLINE ER (24 HR) 200 MG CAPSULE PO SCH (09:05)
[2021-03-30] MEDS: MONTELUKAST 10 MG TABLET PO SCH ×2 (09:05→20:49)
[2021-03-30] MEDS: METOPROLOL TARTRATE 25 MG TABLET PO SCH (09:05)
[2021-03-30] MEDS: PARoxetine 20 MG TABLET PO SCH (09:05)
[2021-03-30] MEDS: INSULIN NPH 100 UNIT/ML SUBCUT SCH ×2 (09:06→16:22)
[2021-03-30] MEDS: INSULIN LISPRO 100 UNIT/ML SUBCUT SCH ×4 (09:07→20:48)
[2021-03-30] MEDS: methylPREDNISolone SOD SUC 40 MG/1 ML VIAL IV SCH (09:08)
[2021-03-30] MEDS: ACETAMINOPHEN 325 MG TABLET PO PRN (09:13)
[2021-03-30] MEDS: DAPAGLIFLOZIN 10 MG TABLET PO SCH (09:13)
[2021-03-30] MEDS: SODIUM CHLORIDE 0.9% 1,000 ML IV SCH (09:15)
[2021-03-30] MEDS ORDERED: SODIUM CHLORIDE 0.9% 250 ML IV ONE (14:23)
[2021-03-30] MEDS: ENOXAPARIN 40 MG/0.4 ML SYRINGE SUBCUT SCH (14:27)
[2021-03-30] MEDS: AZITHROMYCIN INJ 500 MG in SODIUM CHLORIDE 0.9% 250 ML IV SCH (14:28)
[2021-03-30] MEDS: cefTRIAXone 1,000 MG in SODIUM CHLORIDE 0.9% 100 ML IV SCH (20:51)
[2021-03-30] MEDS ORDERED: INSULIN GLARGINE 100 UNIT/ML SUBCUT SCH (21:00)
[2021-03-31] MEDS: ALBUTEROL/IPRATROPIUM 3 ML NEB RESP TX SCH ×4 (00:25→19:58)
[2021-03-31] MEDS: SODIUM CHLORIDE 0.9% 1,000 ML IV SCH ×2 (05:40→17:52)
[2021-03-31 06:33] LABS: Basophils # 0.1 10*3/uL (0.0-0.2); Basophils % 0.4 % (0.0-0.8); Hematocrit 40.5 VOL% (42.0-52.0); Hemoglobin 12.8 GM/DL (14.0-18.0); Immature Granulocytes % 3.9 %; Immature Granulocytes Absolute 0.62 #; Lymphocytes # 1.1 10*3/uL (1.4-4.0); Lymphocytes % 7.1 % (21.2-54.2); Mean Corpuscular HGB Conc 31.6 GM/DL (32-36); Mean Corpuscular Volume 92.5 FL (87-102); Mean Platelet Volume 10.7 FL (9.6-12.0); Monocytes % 5.6 % (1.7-12.7); NRBC # 0.02 10*3/uL; Platelet Count 213 T/CUMM (130-400); Red Blood Count 4.38 MC/CUMM (3.8-5.5); Red Cell Distribution Width 15.4 % (9.3-17.3); White Blood Count 15.8 T/CUMM (4-12)
[2021-03-31 07:03] LABS: Osmolality,Calculated 273.1 MOS/KG (273-304); Potassium 4.8 MMOL/L (3.5-5.1)
[2021-03-31 07:24] LABS: Anisocytosis 1+; Band Neutrophils 11 % (0-10); Lymphocytes 8 % (20-55); Platelet Estimate Normal; Segmented Neutrophils 77 % (50-85); Total Cells Counted 100
[2021-03-31 07:25] LABS: Macrocytosis Slight
[2021-03-31] MEDS: INSULIN LISPRO 100 UNIT/ML SUBCUT SCH ×4 (09:32→20:48)
[2021-03-31] MEDS: FERROUS SULFATE 325 MG TABLET PO SCH (09:33)
[2021-03-31] MEDS: PARoxetine 20 MG TABLET PO SCH (09:33)
[2021-03-31] MEDS: MONTELUKAST 10 MG TABLET PO SCH ×2 (09:33→20:49)
[2021-03-31] MEDS: METOPROLOL TARTRATE 25 MG TABLET PO SCH (09:33)
[2021-03-31] MEDS: DAPAGLIFLOZIN 10 MG TABLET PO SCH (09:33)
[2021-03-31] MEDS: CHOLECALCIFEROL 5,000 UNIT TABLET PO SCH (09:34)
[2021-03-31] MEDS: PANTOPRAZOLE 40 MG TABLET PO SCH ×2 (09:34→20:49)
[2021-03-31] MEDS: GLIMEPIRIDE 4 MG TABLET PO SCH (09:34)
[2021-03-31] MEDS: THEOPHYLLINE ER (24 HR) 200 MG CAPSULE PO SCH (09:34)
[2021-03-31] MEDS: POLYETHYLENE GLYCOL POWDER 17 GM PACK PO SCH ×2 (12:07→20:55)
[2021-03-31] MEDS: MULTIVITAMIN (BEROCCA) TABLET PO SCH (12:08)
[2021-03-31] MEDS: ACETAMINOPHEN 325 MG TABLET PO PRN (12:08)
[2021-03-31] MEDS: DOCUSATE SODIUM 100 MG CAPSULE PO SCH ×2 (12:08→20:49)
[2021-03-31] MEDS: AZITHROMYCIN INJ 500 MG in SODIUM CHLORIDE 0.9% 250 ML IV SCH (15:59)
[2021-03-31] MEDS: ENOXAPARIN 40 MG/0.4 ML SYRINGE SUBCUT SCH (16:00)
[2021-03-31] MEDS: cefTRIAXone 1,000 MG in SODIUM CHLORIDE 0.9% 100 ML IV SCH (20:54)
[2021-03-31] MEDS ORDERED: INSULIN GLARGINE 100 UNIT/ML SUBCUT SCH (21:00)
[2021-04-01] MEDS: ALBUTEROL/IPRATROPIUM 3 ML NEB RESP TX SCH ×2 (01:08→07:11)
[2021-04-01 05:05] LABS: Basophils # 0.1 10*3/uL (0.0-0.2); Basophils % 0.9 % (0.0-0.8); Hematocrit 42.8 VOL% (42.0-52.0); Hemoglobin 13.4 GM/DL (14.0-18.0); Immature Granulocytes % 4.7 %; Immature Granulocytes Absolute 0.41 #; Lymphocytes # 1.3 10*3/uL (1.4-4.0); Lymphocytes % 14.4 % (21.2-54.2); Mean Corpuscular HGB Conc 31.3 GM/DL (32-36); Mean Corpuscular Volume 94.5 FL (87-102); Monocytes % 8.7 % (1.7-12.7); Neutrophils % 71.3 % (38.7-73.9); Platelet Count 182 T/CUMM (130-400); Red Blood Count 4.53 MC/CUMM (3.8-5.5); Red Cell Distribution Width 15.7 % (9.3-17.3); White Blood Count 8.8 T/CUMM (4-12)
[2021-04-01 06:04] LABS: Calcium 8.1 MG/DL (8.5-10.1); Osmolality,Calculated 278.4 MOS/KG (273-304); Potassium 3.4 MMOL/L (3.5-5.1)
[2021-04-01] MEDS: GLIMEPIRIDE 4 MG TABLET PO SCH (08:31)
[2021-04-01] MEDS: THEOPHYLLINE ER (24 HR) 200 MG CAPSULE PO SCH (08:31)
[2021-04-01] MEDS: DAPAGLIFLOZIN 10 MG TABLET PO SCH (08:32)
[2021-04-01] MEDS: MONTELUKAST 10 MG TABLET PO SCH (08:32)
[2021-04-01] MEDS: DOCUSATE SODIUM 100 MG CAPSULE PO SCH (08:32)
[2021-04-01] MEDS: METOPROLOL TARTRATE 25 MG TABLET PO SCH (08:32)
[2021-04-01] MEDS: FERROUS SULFATE 325 MG TABLET PO SCH (08:32)
[2021-04-01] MEDS: CHOLECALCIFEROL 5,000 UNIT TABLET PO SCH (08:32)
[2021-04-01] MEDS: PANTOPRAZOLE 40 MG TABLET PO SCH (08:32)
[2021-04-01] MEDS: MULTIVITAMIN (BEROCCA) TABLET PO SCH (08:33)
[2021-04-01] MEDS: INSULIN LISPRO 100 UNIT/ML SUBCUT SCH ×2 (08:33→12:21)
[2021-04-01] MEDS: PARoxetine 20 MG TABLET PO SCH (08:33)
[2021-04-01] MEDS: POLYETHYLENE GLYCOL POWDER 17 GM PACK PO SCH (08:35)
[2021-04-01] MEDS ORDERED: POTASSIUM CHLORIDE 20 MEQ TABLET PO ONE (09:00)
[2021-04-01] MEDS: SODIUM CHLORIDE 0.9% 1,000 ML IV SCH (11:32)
[2021-04-01 12:03] VITALS: BP 157/97
== END 2021-04-01 12:10 | DRG 190 ==
LOC: EDBD → EDUNIT# → N.ED 10:44 → SUATTDRO 14:10 → N.EDINP 14:10 → N.5E 14:37
PROVIDERS: ADMIT Internal Medicine; ATTEND Internal Medicine Geriatric Medicine